=== PATIENT | male | born 1935 ===

== ENCOUNTER 2021-12-16 21:27 | Inpatient (IN) | payer MEDICARE, SELFPAY ==
[2021-12-16 22:06] VITALS: BP 122/59; PULSE 78; RESP 22; TEMP 36.6; O2SAT 92
[2021-12-16 23:23] VITALS: BMI 29.9
--- NOTE | 2021-12-16 23:47 | PC.ADMIT ---
Patient was admitted to [facility] at 9:45 PM escorted by emt's via stretcher from [facility] with dementia and increased aggressive behavior at home. Admitted here for psychiatric evaluation. Patient is oriented to name only and is very upset he is here and started to use foul language. Patient states I am not staying here I am going home to my and you can's fucking keep me here I'll fight . Attempts to orient patient to [facility] and that he will see a psychiatrist in the morning he could not understand. Patient wears bilateral hearing aides that work minimal as we still have to talk loud. Patient is weak on ambulation and requires a walker. Patient refused most of the assessment. Patient escorted to his room and assisted him to lay down and he did go to sleep. [facility] staff supervision with him at all times as he is a high fall risk.
[2021-12-17 06:00] VITALS: BP 98/60; PULSE 78; TEMP 36.7; O2SAT 97
[2021-12-17 08:28] LABS: Estimated Average Glucose 111 mg/dL; Hemoglobin A1C 106.1653 umol/L; Hemoglobin A1c % 5.5 %
[2021-12-17 08:33] LABS: Alanine Aminotransferase 11 U/L (0-40); Albumin Level 3.5 g/dL (3.5-5.0); Alkaline Phosphatase 52 U/L (39-117); Anion Gap 12 (12-20); Aspartate Amino Transferase 26 U/L (5-37); Blood Urea Nitrogen 30 mg/dL (9-16); Carbon Dioxide 27 mmol/L (22-29); Chloride 108 mmol/L (96-108); Cholesterol 110 mg/dL; Creatinine Clr Calc Pharmacy 37.7; Estimated Glomerular Filt Rate 38; Glucose Fasting 103 mg/dL (60-99); HDL Cholesterol 27 mg/dL; LDL Cholesterol Calculated 68 mg/dl; Magnesium 1.4 mg/dL (1.6-2.6); Potassium 4.7 mmol/L (3.3-5.1); Sodium 142 mmol/L (135-145); Total Protein 5.9 g/dL (6.5-8.0); Triglycerides 75 mg/dL
[2021-12-17 08:47] LABS: Free T4 (Free Thyroxine) 1.32 ng/dL (0.71-1.85); Thyroid Stimulating Hormone 1.02 uIU/mL (0.32-4.0)
[2021-12-17 09:01] LABS: Folate > 20.0 ng/mL (> or = 4.0); Vitamin B12 439 pg/mL (200-900)
[2021-12-17] MEDS: risperiDONE 0.5 MG TABLET PO ×2 (09:10→20:33)
[2021-12-17] MEDS: Clopidogrel Bisulfate 75 MG TABLET PO (09:10)
[2021-12-17] MEDS: Cyanocobalamin (Vitamin B-12) 500 MCG TABLET PO (09:10)
[2021-12-17] MEDS: Cholecalciferol (Vitamin D3) 10 MCG TABLET PO (09:10)
[2021-12-17] MEDS: Folic Acid 1 MG TABLET PO (09:10)
[2021-12-17] MEDS: atenoloL 25 MG TABLET PO (09:10)
[2021-12-17] MEDS: Multivitamin TABLET 1 TAB PO (09:10)
[2021-12-17] MEDS: Spironolactone 25 MG TABLET PO (09:11)
[2021-12-17] MEDS: allopurinoL 100 MG TABLET PO (09:11)
[2021-12-17] MEDS: lisinopriL 5 MG TABLET PO (09:11)
[2021-12-17] MEDS: Famotidine 20 MG TABLET PO (09:11)
[2021-12-17] MEDS: Escitalopram Oxalate 20 MG TABLET PO (09:11)
--- NOTE | 2021-12-17 11:56 | P.CNHOSGPS_ITS ---
History of Present Illness Data of Consult Service Date: 12/17/21 Requesting physician: Dustin Issa Primary Care Provider: Unknown Physician HPI Reason for consult: alizheimer dementia 86 y/o with alizherimer dementia ,gerd, dm2 , gout , possible ckd, possible HLP -admitted for behavioural issues . Patient is awake but have dementia unable to provide much history. Denies any new complaint of chest pain or shortness of breath or abdominal pain or fever or chills or nausea or vomiting Denies any cough Denies any weakness or numbness. patient is otherwise calm and sitting and his daughter and also [facility] -Dr Tomlinson for information : message left , psych provider aware to get information from [facility]. Review of Systems Review of Systems: as above. ENT: Reports Normal hearing present Neurologic: Reports Normal hearing present [facility] Medical History (Updated 12/17/21 @ 13:45 by Jennifer George MD) Diabetes GERD (gastroesophageal reflux disease) Pertinent family history: unable to obtain ( please see above ). Surgical History H/O coronary artery bypass surgery Social History Household Members: Spouse Housing: Assisted Living Facility Do you presently have visiting nurse or other home services: No Patient Tobacco Use Status: Former Tobacco user Tobacco use type: Cigarette Smoked in Last 30 Days: No e-Cigarette/Vaping Use: Never Used Patient Interested in Nicotine Replacement: No Patient Given Instructions on How to Stop Smoking: No (patient quit 10 years ago.) Second Hand Smoke Exposure: No Use of substances other than those prescribed or required for medical reasons: No Currently Displaying Signs/Symptoms of Drug Intoxication Withdrawal: No Any prior treatment program specific to substance use: No Have you been hit, kicked, punched, or otherwise hurt by someone within the past year? If so, by whom?: No Do you feel safe in your current relationship?: Yes Is there a partner from a previous relationship who is making you feel unsafe now?: No Are you made to feel afraid or neglected: No Spiritual Healthcare Practices: none Taoist Healthcare Practices: none Cultural Healthcare Practices: none Advance Directives: No Advance Directives Information Provided: No Do you have thoughts of harming others: None Do you have a plan to hurt others: No Plan Recently lost weight without trying: No Eating poorly because of decreased appetite: No Nutrition Risks: No Nutritional Risk Poor oral hygiene: Yes service: Yes ([employer]/ demilitarized zone) Sexual orientation: Straight/Heterosexual Meds Allergies Allergy/AdvReac Type Severity Reaction Status Date / Time aspirin Allergy Unknown Unknown Verified 12/16/21 23:03 egg Allergy Unknown Unknown Verified 12/16/21 22:59 gelatin Allergy Unknown Unknown Verified 12/16/21 22:59 latex Allergy Unknown Unknown Verified 12/16/21 22:59 neomycin Allergy Unknown Unknown Verified 12/16/21 22:59 Sulfa (Sulfonamide Allergy Unknown Unknown Verified 12/16/21 22:59 Antibiotics) sulfamethizole Allergy Unknown Unknown Verified 12/16/21 23:05 warfarin Allergy Unknown Unknown Verified 12/16/21 23:01 tramadol Allergy Unknown Verified 12/16/21 23:01 Active Medications: Current Medications Acetaminophen (Acetaminophen 325 Mg Tablet) 650 mg PO Q8H PRN PRN Reason: Pain, Mild (Pain Scale 1-3) Al Hydroxide/Mg Hydroxide (Magnesium Hydrox/Alum Hydrox 30 Ml Oral.Susp) 30 ml PO Q6H PRN PRN Reason: Heartburn/Nausea Allopurinol (Allopurinol 100 Mg Tablet) 100 mg PO DAILY [facility] Last Admin: 12/17/21 09:11 Dose: 100 mg Documented by: Atenolol (Atenolol 25 Mg Tablet) 25 mg PO DAILY [facility]; Protocol Last Admin: 12/17/21 09:10 Dose: 25 mg Documented by: Atorvastatin Calcium (Atorvastatin Calcium 20 Mg Tablet) 20 mg PO BEDTIME [facility] Clopidogrel Bisulfate (Clopidogrel Bisulfate 75 Mg Tablet) 75 mg PO DAILY [facility] Last Admin: 12/17/21 09:10 Dose: 75 mg Documented by: Cyanocobalamin (Cyanocobalamin (Vitamin B-12) 500 Mcg Tablet) 500 mcg PO DAILY [facility] Last Admin: 12/17/21 09:10 Dose: 500 mcg Documented by: Escitalopram Oxalate (Escitalopram Oxalate 20 Mg Tablet) 20 mg PO DAILY [facility] Last Admin: 12/17/21 09:11 Dose: 20 mg Documented by: Famotidine (Famotidine 20 Mg Tablet) 20 mg PO DAILY [facility] Last Admin: 12/17/21 09:11 Dose: 20 mg Documented by: Folic Acid (Folic Acid 1 Mg Tablet) 1 mg PO DAILY [facility] Last Admin: 12/17/21 09:10 Dose: 1 mg Documented by: Gabapentin (Gabapentin 100 Mg Capsule) 100 mg PO DAILY PRN PRN Reason: neuropathic pain Hydroxyzine HCl (Hydroxyzine Hcl 25 Mg Tablet) 25 mg PO BEDTIME PRN PRN Reason: Anxiety Lisinopril (Lisinopril 5 Mg Tablet) 5 mg PO DAILY [facility]; Protocol Last Admin: 12/17/21 09:11 Dose: 5 mg Documented by: Magnesium Hydroxide (Milk Of Magnesia 30 Ml Oral.Susp) 30 ml PO DAILY PRN PRN Reason: Constipation Multivitamins/Vitamin C (Multivitamin Tablet) 1 tab PO DAILY [facility] Last Admin: 12/17/21 09:10 Dose: 1 tab Documented by: Risperidone (Risperidone 0.5 Mg Tablet) 0.5 mg PO DAILY [facility] Last Admin: 12/17/21 09:10 Dose: 0.5 mg Documented by: Risperidone (Risperidone 0.5 Mg Tablet) 0.5 mg PO BEDTIME [facility] Spironolactone (Spironolactone 25 Mg Tablet) 25 mg PO DAILY [facility]; Protocol Last Admin: 12/17/21 09:11 Dose: 25 mg Documented by: Trazodone HCl (Trazodone Hcl 50 Mg Tablet) 50 mg PO BEDTIME PRN PRN Reason: Insomnia Vitamin D (Cholecalciferol (Vitamin D3) 10 Mcg Tablet) 10 mcg PO DAILY [facility] Last Admin: 12/17/21 09:10 Dose: 10 mcg Documented by: Home Medications Medication Instructions Recorded Confirmed Last Taken Type Cyanacobalamin 500 mcg PO DAILY 12/17/21 12/17/21 Unknown History Daily-Carey (with folic acid) 400 mcg PO DAILY 12/17/21 12/17/21 Unknown History allopurinol 100 mg PO DAILY 12/17/21 12/17/21 Unknown History atenolol 25 mg PO DAILY 12/17/21 12/17/21 Unknown History cholecalciferol (vitamin D3) 10 mcg PO DAILY 12/17/21 12/17/21 Unknown History citalopram 40 mg PO DAILY 12/17/21 12/17/21 Unknown History clopidogrel 75 mg PO DAILY 12/17/21 12/17/21 Unknown History folic acid 1 mg tablet 1 mg PO DAILY 12/17/21 12/17/21 Unknown History gabapentin 100 mg PO DAILY PRN 12/17/21 12/17/21 Unknown History lisinopril 5 mg PO DAILY 12/17/21 12/17/21 Unknown History takf5-[id number]-orn-fish oil-L.casei 1,200 mg PO DAILY 12/17/21 12/17/21 Unknown History pantoprazole 40 mg PO DAILY 12/17/21 12/17/21 Unknown History risperidone 0.5 mg PO DAILY 12/17/21 12/17/21 Unknown History simvastatin 40 mg PO DAILY 12/17/21 12/17/21 Unknown History spironolactone 25 mg PO DAILY 12/17/21 12/17/21 Unknown History Results Labs CBC and Chem 7: 12/17/21 07:49 Labs: Laboratory Results - last 24 hr 12/17/21 12/17/21 12/17/21 07:49 07:49 07:49 Anion Gap 12 Estim Creat Clear Calc 37.7 Estimated GFR 38 Fasting Glucose 103 H Estimat Average Glucose 111 Hemoglobin A1c % 5.5 Calcium 9.0 Magnesium 1.4 L* Total Bilirubin 1.0 AST 26 ALT 11 Alkaline Phosphatase 52 Total Protein 5.9 L Albumin 3.5 Triglycerides 75 Cholesterol 110 LDL Cholesterol, Calc 68 HDL Cholesterol 27 Vitamin B12 439 Folate > 20.0 TSH 1.02 Free T4 1.32 Assessment and Plan (1) Dementia: Status: Acute (2) Hypomagnesemia: Status: Acute (3) CKD (chronic kidney disease): Status: Acute Plan 86-year-old male with the multiple comorbidities as above: Admitted to the psych unit Alzheimer and behavior issues. 1. Alzheimer dementia with behavior changes Management as per psych. 2. Hypomagnesemia: Replacement added, monitor BMP and magnesium in 2 days. 3. Possible CKD :stage 3( unclear since information not available) his creatinine was 1.5 on 12/12/21( in [facility]). hold lisinopril and spironolactone for 2 days and check bmp encourage for hydration also consider nephro eval if still elevated creatinine 4. possible HLP: continue statin . check lipid panel 5. possible hx of cad( ? bypass): continue plavix . 6. Gerd: continue ppi. 7.Gout: continue allopurinol. 8. dm :hba1c 5.5 not on any dm meds moniter fs , diabetic diet In addition patient is also on B12, folate, atenolol-also on medication list sent from [facility] -psych is aware to get information, discussed with nursing staff miss Jefferson /Dr morton. Physical Exam Vital Signs: Last Vital Signs Temp 97.9 F 12/16/21 22:06 Pulse 78 12/16/21 22:06 Resp 22 H 12/16/21 22:06 BP 122/59 L 12/16/21 22:06 Pulse Ox 92 12/16/21 22:06 BMI result Body Mass Index 29.9 Appearance: Alert.? Oriented X3.? not in distress.? Eyes: Pupils equal, round and reactive to light.? Sclera nonicteric.? ENT: Pharynx normal.? Moist mucous membranes. cvs: rrr, [id number]. res: clear to auscultation ,no rhonchii or wheezing abd: no rebound or guarding ,nt, bs present. ext pulses present , no cyanosis . neuro: axo3 , nonfocal. Eyes Pupils: Equal, round and reactive pupils present Neuro Cranial nerves: Yes CN's II-XII intact bilaterally, Yes Facial sensation intact/muscles of mastication intact, Yes Intact sense of smell present, Yes Equal, round and reactive pupils present, Yes Normal accommodation reflex present, Yes Bilaterally intact EOM present, Yes Nystagmus not present, Yes Normal facial strength present, Yes Midline tongue present, Yes Normal gag reflex present, Yes Symmetric palate elevation present, Yes Normal hearing present, Yes Ability to bilaterally rotate head present and Yes Ability to bilaterally elevate shoulders present
--- NOTE | 2021-12-17 13:19 | P.HPPS_ITS ---
HPI Date of Service: 12/17/21 Chief Complaint: Unspecified dementia w/o behavioral disturbance Sources of Information: patient interviewed and chart reviewed HPI Subjective Notes: Section 12B Narrative: The patient is an 86-year-old male, , father of adult children, retired, resident of an assisted living facility, referred from the [facility] due to exacerbation of agitation and disorganized behavior. According to the chart, her daughter has reported that the patient was diagnosed with dementia and in the last 2 or 3 months his condition has worsened since he is hard of hearing and he cannot communicate very well. According to her daughter, also, the patient has poor short-term memory, inability to find words and increase confusion with agitation. The patient is a resident of an assisted living facility with his who also suffers from dementia for the last 10 years. Today in the morning, the patient was very angry and agitated is stating that he wanted to go back home. On interview, the patient was a very poor historian, he was unable to provide any information and he looked pleasantly confused. Unable to follow instructions due to his poor hearing. Past Psychiatric History: Known as per crisis report Medical Evaluation Reviewed: Hospitalist Suman Pending PENDING SALE TO [facility] Medical History (Updated 12/17/21 @ 13:45 by Jennifer George MD) Diabetes GERD (gastroesophageal reflux disease) Surgical History H/O coronary artery bypass surgery Family History: Denies Social History: Retired, resident of an assisted living facility with his who suffers from dementia. 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 Trauma History: Known Diagnostics Vital Signs (24Hr): Vital Signs - 24 hr 12/16/21 22:06 Temperature 97.9 F Pulse Rate 78 Respiratory Rate 22 H Blood Pressure 122/59 L Pulse Oximetry 92 BMI result Body Mass Index 29.9 Labs Results: 12/17/21 07:49 Labs: Laboratory Results - last 48 hr 12/17/21 12/17/21 12/17/21 07:49 07:49 07:49 Sodium 142 Potassium 4.7 Chloride 108 Carbon Dioxide 27 Anion Gap 12 BUN 30 H Creatinine 1.72 H Estim Creat Clear Calc 37.7 Estimated GFR 38 Fasting Glucose 103 H Estimat Average Glucose 111 Hemoglobin A1c % 5.5 Calcium 9.0 Magnesium 1.4 L* Total Bilirubin 1.0 AST 26 ALT 11 Alkaline Phosphatase 52 Total Protein 5.9 L Albumin 3.5 Triglycerides 75 Cholesterol 110 LDL Cholesterol, Calc 68 HDL Cholesterol 27 Vitamin B12 439 Folate > 20.0 TSH 1.02 Free T4 1.32 Meds/Allergies Meds Home Medications Acetaminophen (Acetaminophen 325 Mg Tablet) 650 mg PO Q8H PRN PRN Reason: Pain, Mild (Pain Scale 1-3) Al Hydroxide/Mg Hydroxide (Magnesium Hydrox/Alum Hydrox 30 Ml Oral.Susp) 30 ml PO Q6H PRN PRN Reason: Heartburn/Nausea Allopurinol (Allopurinol 100 Mg Tablet) 100 mg PO DAILY [facility] Last Admin: 12/17/21 09:11 Dose: 100 mg Documented by: Atenolol (Atenolol 25 Mg Tablet) 25 mg PO DAILY [facility]; Protocol Last Admin: 12/17/21 09:10 Dose: 25 mg Documented by: Atorvastatin Calcium (Atorvastatin Calcium 20 Mg Tablet) 20 mg PO BEDTIME [facility] Clopidogrel Bisulfate (Clopidogrel Bisulfate 75 Mg Tablet) 75 mg PO DAILY [facility] Last Admin: 12/17/21 09:10 Dose: 75 mg Documented by: Cyanocobalamin (Cyanocobalamin (Vitamin B-12) 500 Mcg Tablet) 500 mcg PO DAILY [facility] Last Admin: 12/17/21 09:10 Dose: 500 mcg Documented by: Escitalopram Oxalate (Escitalopram Oxalate 20 Mg Tablet) 20 mg PO DAILY [facility] Last Admin: 12/17/21 09:11 Dose: 20 mg Documented by: Famotidine (Famotidine 20 Mg Tablet) 20 mg PO DAILY [facility] Last Admin: 12/17/21 09:11 Dose: 20 mg Documented by: Folic Acid (Folic Acid 1 Mg Tablet) 1 mg PO DAILY [facility] Last Admin: 12/17/21 09:10 Dose: 1 mg Documented by: Gabapentin (Gabapentin 100 Mg Capsule) 100 mg PO DAILY PRN PRN Reason: neuropathic pain Hydroxyzine HCl (Hydroxyzine Hcl 25 Mg Tablet) 25 mg PO BEDTIME PRN PRN Reason: Anxiety Lisinopril (Lisinopril 5 Mg Tablet) 5 mg PO DAILY [facility]; Protocol Last Admin: 12/17/21 09:11 Dose: 5 mg Documented by: Magnesium Hydroxide (Milk Of Magnesia 30 Ml Oral.Susp) 30 ml PO DAILY PRN PRN Reason: Constipation Magnesium Oxide (Magnesium Oxide 400 Mg Tablet) [facility] Multivitamins/Vitamin C (Multivitamin Tablet) 1 tab PO DAILY [facility] Last Admin: 12/17/21 09:10 Dose: 1 tab Documented by: Risperidone (Risperidone 0.5 Mg Tablet) 0.5 mg PO TID [facility] Spironolactone (Spironolactone 25 Mg Tablet) 25 mg PO DAILY [facility]; Protocol Last Admin: 12/17/21 09:11 Dose: 25 mg Documented by: Trazodone HCl (Trazodone Hcl 50 Mg Tablet) 50 mg PO BEDTIME PRN PRN Reason: Insomnia Vitamin D (Cholecalciferol (Vitamin D3) 10 Mcg Tablet) 10 mcg PO DAILY [facility] Last Admin: 12/17/21 09:10 Dose: 10 mcg Documented by: Allergies Allergies Allergy/AdvReac Type Severity Reaction Status Date / Time aspirin Allergy Unknown Unknown Verified 12/16/21 23:03 egg Allergy Unknown Unknown Verified 12/16/21 22:59 gelatin Allergy Unknown Unknown Verified 12/16/21 22:59 latex Allergy Unknown Unknown Verified 12/16/21 22:59 neomycin Allergy Unknown Unknown Verified 12/16/21 22:59 Sulfa (Sulfonamide Allergy Unknown Unknown Verified 12/16/21 22:59 Antibiotics) sulfamethizole Allergy Unknown Unknown Verified 12/16/21 23:05 warfarin Allergy Unknown Unknown Verified 12/16/21 23:01 tramadol Allergy Unknown Verified 12/16/21 23:01 Mental Status Exam Mental Status Exam Patient Appearance: Fatigued and Unkempt Patient Orientation: Person Level of Consciousness: Awake Patient Behavior: Guarded and Suspicious Mood Description: Depressed Affect Description: Constricted Patient Cognition Impaired: Yes Ability to Follow Directions: Poor Speech Pattern: Impoverished and Difficulty Finding Words Hallucinations: None Delusions: Paranoid Ideation Thought Process: Illogical, Distracted and Evasive Thought Content: positive for Poverty of Content Judgement: Poor Assessment & Plan Assessment & Plan (1) 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 As per the report of her daughter, he responded fairly well to Risperdal in the past at a very low dose. Plan 1. Continue same medications as per med reconciliation form. 2. Gather collateral information. 3. Start Risperdal 0.5 mg p.o. t.i.d. to target psychosis. Patient educated on: medical condition Reason for continued inpatient stay Substantial Risk for: inability to function, rapid decompensation and med/psych decompensation
[2021-12-17] MEDS: Gabapentin 100 MG CAPSULE PO (15:03)
[2021-12-17] MEDS: Atorvastatin Calcium 20 MG TABLET PO (20:33)
[2021-12-17] MEDS: traZODone HCL 50 MG TABLET PO (20:33)
[2021-12-17] MEDS: hydrOXYzine HCL 25 MG TABLET PO (20:33)
[2021-12-17 21:46] VITALS: BP 145/70; PULSE 83; RESP 19; TEMP 37.2; O2SAT 99
[2021-12-17 21:58] LABS: Glucose, Whole Blood 109 mg/dL (60-115)
[2021-12-18 06:00] VITALS: BP 119/71; PULSE 73; TEMP 36.6; O2SAT 95
--- NOTE | 2021-12-18 08:00 | ECG_ITS ---
Test Reason : CHECK QTC Blood Pressure : / mmHG Vent. Rate : 065 BPM Atrial Rate : 065 BPM P-R Int : 212 ms QRS Dur : 146 ms QT Int : 416 ms P-R-T Axes : 087 020 -88 degrees QTc Int : 432 ms Sinus rhythm with 1st degree A-V block Non-specific intra-ventricular conduction block Lateral infarct , age undetermined Inferior infarct , age undetermined Abnormal ECG No previous ECGs available Referred By: Krzysztof Menjivar Electronically Signed By:Rito Zhu
[2021-12-18] MEDS: Clopidogrel Bisulfate 75 MG TABLET PO (08:33)
[2021-12-18] MEDS: Magnesium Oxide 400 MG TABLET PO (08:33)
[2021-12-18] MEDS: Famotidine 20 MG TABLET PO (08:33)
[2021-12-18] MEDS: Cyanocobalamin (Vitamin B-12) 500 MCG TABLET PO (08:33)
[2021-12-18] MEDS: Cholecalciferol (Vitamin D3) 10 MCG TABLET PO (08:33)
[2021-12-18] MEDS: risperiDONE 0.5 MG TABLET PO (08:34)
[2021-12-18] MEDS: Multivitamin TABLET 1 TAB PO (08:34)
[2021-12-18] MEDS: atenoloL 25 MG TABLET PO (08:34)
[2021-12-18] MEDS: Spironolactone 25 MG TABLET PO (08:34)
[2021-12-18] MEDS: allopurinoL 100 MG TABLET PO (08:34)
[2021-12-18] MEDS: Escitalopram Oxalate 20 MG TABLET PO (08:34)
[2021-12-18] MEDS: lisinopriL 5 MG TABLET PO (08:34)
[2021-12-18] MEDS: Folic Acid 1 MG TABLET PO (08:34)
--- NOTE | 2021-12-18 12:44 | HO.PSYCHPN ---
Subjective Subjective Date of Service: 12/18/21 Reason For Visit: Unspecified dementia w/o behavioral disturbance Interim History: The nursing staff reported the patient is on one-to-one for safety. The social sciences professor talked with the daughter and she provided a lot of information. The patient [facility] and apparently he has been deteriorating in the last months. there is a report that the patient could have Lewy Body dementia. At this moment, most likely the disposition will be to a care home facility. On interview, the patient denies new symptoms he was confused but not violent Mental Status Exam Mental Status Exam Patient Appearance: Well Grooomed Patient Orientation: Person Level of Consciousness: Awake Patient Behavior: Cooperative Mood Description: Constricted Affect Description: Constricted Patient Cognition Impaired: Yes Ability to Follow Directions: Good Speech Pattern: Appropriate Hallucinations: None Delusions: Paranoid Ideation Thought Process: Distracted and Confusion Thought Content: positive for Circumstantial and positive for Poverty of Content Judgement: Poor Diagnostics Vital Signs (24Hr): Vital Signs - 24 hr 12/17/21 21:46 Temperature 98.9 F Pulse Rate 83 Respiratory Rate 19 Blood Pressure 145/70 H Pulse Oximetry 99 BMI result Body Mass Index 29.9 Labs Results: 12/17/21 07:49 Labs: Laboratory Results - last 48 hr 12/17/21 12/17/21 12/17/21 07:49 07:49 07:49 Sodium 142 Potassium 4.7 Chloride 108 Carbon Dioxide 27 Anion Gap 12 BUN 30 H Creatinine 1.72 H Estim Creat Clear Calc 37.7 Estimated GFR 38 POC Glucose Fasting Glucose 103 H Estimat Average Glucose 111 Hemoglobin A1c % 5.5 Calcium 9.0 Magnesium 1.4 L* Total Bilirubin 1.0 AST 26 ALT 11 Alkaline Phosphatase 52 Total Protein 5.9 L Albumin 3.5 Triglycerides 75 Cholesterol 110 LDL Cholesterol, Calc 68 HDL Cholesterol 27 Vitamin B12 439 Folate > 20.0 TSH 1.02 Free T4 1.32 12/17/21 21:52 Sodium Potassium Chloride Carbon Dioxide Anion Gap BUN Creatinine Estim Creat Clear Calc Estimated GFR POC Glucose 109 Fasting Glucose Estimat Average Glucose Hemoglobin A1c % Calcium Magnesium Total Bilirubin AST ALT Alkaline Phosphatase Total Protein Albumin Triglycerides Cholesterol LDL Cholesterol, Calc HDL Cholesterol Vitamin B12 Folate TSH Free T4 Medications Medications Current Medications Acetaminophen (Acetaminophen 325 Mg Tablet) 650 mg PO Q8H PRN PRN Reason: Pain, Mild (Pain Scale 1-3) Al Hydroxide/Mg Hydroxide (Magnesium Hydrox/Alum Hydrox 30 Ml Oral.Susp) 30 ml PO Q6H PRN PRN Reason: Heartburn/Nausea Allopurinol (Allopurinol 100 Mg Tablet) 100 mg PO DAILY [facility] Last Admin: 12/18/21 08:34 Dose: 100 mg Documented by: Atenolol (Atenolol 25 Mg Tablet) 25 mg PO DAILY [facility]; Protocol Last Admin: 12/18/21 08:34 Dose: 25 mg Documented by: Atorvastatin Calcium (Atorvastatin Calcium 20 Mg Tablet) 20 mg PO BEDTIME [facility] Last Admin: 12/17/21 20:33 Dose: 20 mg Documented by: Clopidogrel Bisulfate (Clopidogrel Bisulfate 75 Mg Tablet) 75 mg PO DAILY [facility] Last Admin: 12/18/21 08:33 Dose: 75 mg Documented by: Cyanocobalamin (Cyanocobalamin (Vitamin B-12) 500 Mcg Tablet) 500 mcg PO DAILY [facility] Last Admin: 12/18/21 08:33 Dose: 500 mcg Documented by: Escitalopram Oxalate (Escitalopram Oxalate 20 Mg Tablet) 20 mg PO DAILY [facility] Last Admin: 12/18/21 08:34 Dose: 20 mg Documented by: Famotidine (Famotidine 20 Mg Tablet) 20 mg PO DAILY [facility] Last Admin: 12/18/21 08:33 Dose: 20 mg Documented by: Folic Acid (Folic Acid 1 Mg Tablet) 1 mg PO DAILY [facility] Last Admin: 12/18/21 08:34 Dose: 1 mg Documented by: Gabapentin (Gabapentin 100 Mg Capsule) 100 mg PO TID PRN PRN Reason: neuropathic pain Last Admin: 12/17/21 15:03 Dose: 100 mg Documented by: Hydroxyzine HCl (Hydroxyzine Hcl 25 Mg Tablet) 25 mg PO BEDTIME PRN PRN Reason: Anxiety Last Admin: 12/17/21 20:33 Dose: 25 mg Documented by: Lisinopril (Lisinopril 5 Mg Tablet) 5 mg PO DAILY [facility]; Protocol Last Admin: 12/18/21 08:34 Dose: 5 mg Documented by: Magnesium Hydroxide (Milk Of Magnesia 30 Ml Oral.Susp) 30 ml PO DAILY PRN PRN Reason: Constipation Magnesium Oxide (Magnesium Oxide 400 Mg Tablet) 400 mg PO BIDPC [facility] Last Admin: 12/18/21 08:33 Dose: 400 mg Documented by: Multivitamins/Vitamin C (Multivitamin Tablet) 1 tab PO DAILY [facility] Last Admin: 12/18/21 08:34 Dose: 1 tab Documented by: Risperidone (Risperidone 0.5 Mg Tablet) 0.5 mg PO TID [facility] Last Admin: 12/18/21 08:34 Dose: 0.5 mg Documented by: Spironolactone (Spironolactone 25 Mg Tablet) 25 mg PO DAILY [facility]; Protocol Last Admin: 12/18/21 08:34 Dose: 25 mg Documented by: Trazodone HCl (Trazodone Hcl 50 Mg Tablet) 50 mg PO BEDTIME PRN PRN Reason: Insomnia Last Admin: 12/17/21 20:33 Dose: 50 mg Documented by: Vitamin D (Cholecalciferol (Vitamin D3) 10 Mcg Tablet) 10 mcg PO DAILY [facility] Last Admin: 12/18/21 08:33 Dose: 10 mcg Documented by: Allergies Allergies Allergy/AdvReac Type Severity Reaction Status Date / Time aspirin Allergy Unknown Unknown Verified 12/16/21 23:03 egg Allergy Unknown Unknown Verified 12/16/21 22:59 gelatin Allergy Unknown Unknown Verified 12/16/21 22:59 latex Allergy Unknown Unknown Verified 12/16/21 22:59 neomycin Allergy Unknown Unknown Verified 12/16/21 22:59 Sulfa (Sulfonamide Allergy Unknown Unknown Verified 12/16/21 22:59 Antibiotics) sulfamethizole Allergy Unknown Unknown Verified 12/16/21 23:05 warfarin Allergy Unknown Unknown Verified 12/16/21 23:01 tramadol Allergy Unknown Verified 12/16/21 23:01 Assessment & Plan Assessment & Plan (1) 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 As per the report of her daughter, he responded fairly well to Risperdal in the past at a very low dose. Plan 1. Continue same medications as per med reconciliation form. 2. Gather collateral information. 3. increase Risperdal up to 1 mg p.o. b.i.d. I spent ___20___ minutes with the patient and/or on the patient floor today, greater than?50% of which was spent counseling/coordinating care. Patient educated on: therapeutic strategies Informed Consent: does not understand and further education needed Reason for contiued inpatient stay Substantial Risk for: inability to function, rapid decompensation and med/psych decompensation
[2021-12-18] MEDS: traZODone HCL 50 MG TABLET PO (20:46)
[2021-12-18] MEDS: risperiDONE 1 MG TABLET PO (20:46)
[2021-12-18] MEDS: hydrOXYzine HCL 25 MG TABLET PO (20:46)
[2021-12-18] MEDS: Atorvastatin Calcium 20 MG TABLET PO (20:47)
[2021-12-18 21:14] LABS: Glucose, Whole Blood 91 mg/dL (60-115)
[2021-12-18 21:56] VITALS: BP 125/65; PULSE 60; RESP 18; TEMP 37; O2SAT 93
[2021-12-19 08:00] VITALS: BP 116/83; PULSE 79; RESP 18; TEMP 36.3; O2SAT 94
[2021-12-19] MEDS: lisinopriL 5 MG TABLET PO (08:36)
[2021-12-19] MEDS: Magnesium Oxide 400 MG TABLET PO ×2 (08:36→16:53)
[2021-12-19] MEDS: Cyanocobalamin (Vitamin B-12) 500 MCG TABLET PO (08:36)
[2021-12-19] MEDS: Cholecalciferol (Vitamin D3) 10 MCG TABLET PO (08:36)
[2021-12-19] MEDS: risperiDONE 1 MG TABLET PO ×2 (08:36→20:23)
[2021-12-19] MEDS: allopurinoL 100 MG TABLET PO (08:37)
[2021-12-19] MEDS: atenoloL 25 MG TABLET PO (08:37)
[2021-12-19] MEDS: Escitalopram Oxalate 20 MG TABLET PO (08:37)
[2021-12-19] MEDS: Multivitamin TABLET 1 TAB PO (08:37)
[2021-12-19] MEDS: Folic Acid 1 MG TABLET PO (08:37)
[2021-12-19] MEDS: Famotidine 20 MG TABLET PO (08:37)
[2021-12-19] MEDS: Clopidogrel Bisulfate 75 MG TABLET PO (08:37)
[2021-12-19] MEDS: Spironolactone 25 MG TABLET PO (08:37)
--- NOTE | 2021-12-19 10:50 | P.PNPSI_ITS ---
Subjective Subjective Date of Service: 12/19/21 Reason For Visit: Unspecified dementia w/o behavioral disturbance Subjective Notes: Conditional Voluntary Interim History: Pt sitting in chair, language with noted aphasia and derailment. Pt reports he is 55, not 86. He also reports his is older. 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 He denies SI/HI. In morning pt put on 5 minutes checks, but he continued to present as impulsive, trying to ambulate on his own and move heavy objects without safety awareness, therefore was put back on 1:1 Medication Compliance: Yes Review of Systems Review of Systems as above. Yes Unobtainable due to mental status Reports Normal hearing present Reports Normal hearing present Mental Status Exam Mental Status Exam Patient Appearance: Well Grooomed Patient Orientation: Person Patient Behavior: Cooperative Mood Description: Constricted Affect Description: Constricted Patient Cognition Impaired: Yes Ability to Follow Directions: Good Speech Pattern: Appropriate Diagnostics Vital Signs (24Hr): Vital Signs - 24 hr 12/21/21 19:57 Temperature 97.8 F Pulse Rate 81 Respiratory Rate 18 Blood Pressure 108/59 L Pulse Oximetry 96 BMI result Body Mass Index 29.9 Labs Results: 12/21/21 08:14 12/21/21 08:14 Labs: Laboratory Results - last 48 hr 12/20/21 12/21/21 12/21/21 12:18 08:14 08:14 WBC 5.7 RBC 3.35 L Hgb 10.6 L Hct 32.2 L MCV 96.1 MCH 31.6 MCHC 32.9 RDW 12.5 Plt Count 136 L MPV 9.8 Immature Gran % (Auto) 0.5 H Neut % (Auto) 68.2 Lymph % (Auto) 15.8 L Hand % (Auto) 12.8 H Eos % (Auto) 2.3 Baso % (Auto) 0.4 Lymph # (Auto) 0.9 L Hand # (Auto) 0.7 Eos # (Auto) 0.1 Baso # (Auto) 0.0 Abs Immat Gran (auto) 0.03 Absolute Neuts (auto) 3.9 Absolute Nucleated RBC 0.000 Nucleated RBC % (auto) 0.0 Sodium 139 137 Potassium 5.3 H 4.8 Chloride 107 106 Carbon Dioxide 20 L 26 Anion Gap 17 10 L BUN 41 H 37 H Creatinine 2.06 H 1.61 H Estim Creat Clear Calc 31.5 40.3 Estimated GFR 31 41 Random Glucose 91 102 Calcium 9.3 9.0 Total Bilirubin 1.2 H 1.0 AST 34 29 ALT 16 16 Alkaline Phosphatase 59 55 Total Protein 6.5 5.7 L Albumin 3.6 3.3 L Medications Medications Current Medications Acetaminophen (Acetaminophen 325 Mg Tablet) 650 mg PO Q8H PRN PRN Reason: Pain, Mild (Pain Scale 1-3) Al Hydroxide/Mg Hydroxide (Magnesium Hydrox/Alum Hydrox 30 Ml Oral.Susp) 30 ml PO Q6H PRN PRN Reason: Heartburn/Nausea Allopurinol (Allopurinol 100 Mg Tablet) 100 mg PO DAILY [facility] Last Admin: 12/21/21 09:33 Dose: 100 mg Documented by: Atenolol (Atenolol 25 Mg Tablet) 25 mg PO DAILY [facility]; Protocol Last Admin: 12/21/21 10:16 Dose: Not Given Documented by: Atorvastatin Calcium (Atorvastatin Calcium 20 Mg Tablet) 20 mg PO BEDTIME [facility] Last Admin: 12/21/21 20:16 Dose: 20 mg Documented by: Clopidogrel Bisulfate (Clopidogrel Bisulfate 75 Mg Tablet) 75 mg PO DAILY [facility] Last Admin: 12/21/21 09:32 Dose: 75 mg Documented by: Cyanocobalamin (Cyanocobalamin (Vitamin B-12) 500 Mcg Tablet) 500 mcg PO DAILY [facility] Last Admin: 12/21/21 09:33 Dose: 500 mcg Documented by: Divalproex Sodium (Divalproex Sodium Sprinkles 125 Mg ) 125 mg PO TID [facility] Last Admin: 12/21/21 20:16 Dose: 125 mg Documented by: Escitalopram Oxalate (Escitalopram Oxalate 20 Mg Tablet) 20 mg PO DAILY [facility] Last Admin: 12/21/21 09:33 Dose: 20 mg Documented by: Famotidine (Famotidine 20 Mg Tablet) 20 mg PO DAILY [facility] Last Admin: 12/21/21 09:32 Dose: 20 mg Documented by: Folic Acid (Folic Acid 1 Mg Tablet) 1 mg PO DAILY [facility] Last Admin: 12/21/21 09:32 Dose: 1 mg Documented by: Hydroxyzine HCl (Hydroxyzine Hcl 25 Mg Tablet) 25 mg PO BEDTIME PRN PRN Reason: Anxiety Last Admin: 12/19/21 23:02 Dose: 25 mg Documented by: Magnesium Hydroxide (Milk Of Magnesia 30 Ml Oral.Susp) 30 ml PO DAILY PRN PRN Reason: Constipation Magnesium Oxide (Magnesium Oxide 400 Mg Tablet) 400 mg PO BIDPC [facility] Last Admin: 12/21/21 23:17 Dose: Not Given Documented by: Multivitamins/Vitamin C (Multivitamin Tablet) 1 tab PO DAILY [facility] Last Admin: 12/21/21 09:32 Dose: 1 tab Documented by: Nystatin (Nystatin Ointment 15 Gm Tube) 1 appl TOPICAL BID [facility]; Protocol Last Admin: 12/21/21 20:23 Dose: Not Given Documented by: Olanzapine (Olanzapine 5 Mg Tablet) 5 mg PO Q4H PRN PRN Reason: agitation Last Admin: 12/21/21 13:01 Dose: 5 mg Documented by: Risperidone (Risperidone 1 Mg Tablet) 1 mg PO BID [facility] Last Admin: 12/21/21 20:16 Dose: 1 mg Documented by: Spironolactone (Spironolactone 25 Mg Tablet) 25 mg PO DAILY [facility]; Protocol Last Admin: 12/21/21 10:16 Dose: Not Given Documented by: Trazodone HCl (Trazodone Hcl 50 Mg Tablet) 50 mg PO BEDTIME PRN PRN Reason: Insomnia Last Admin: 12/19/21 20:23 Dose: 50 mg Documented by: Vitamin D (Cholecalciferol (Vitamin D3) 10 Mcg Tablet) 10 mcg PO DAILY [facility] Last Admin: 12/21/21 09:32 Dose: 10 mcg Documented by: Allergies Allergies Allergy/AdvReac Type Severity Reaction Status Date / Time aspirin Allergy Unknown Unknown Verified 12/16/21 23:03 egg Allergy Unknown Unknown Verified 12/16/21 22:59 gelatin Allergy Unknown Unknown Verified 12/16/21 22:59 latex Allergy Unknown Unknown Verified 12/16/21 22:59 neomycin Allergy Unknown Unknown Verified 12/16/21 22:59 Sulfa (Sulfonamide Allergy Unknown Unknown Verified 12/16/21 22:59 Antibiotics) sulfamethizole Allergy Unknown Unknown Verified 12/16/21 23:05 warfarin Allergy Unknown Unknown Verified 12/16/21 23:01 tramadol Allergy Unknown Verified 12/16/21 23:01 Assessment & Plan Assessment & Plan (1) 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 As per the report of her daughter, he responded fairly well to Risperdal in the past at a very low dose. Plan 1. Continue same medications as per med reconciliation form. 2. Gather collateral information. 3. continue Risperdal up to 1 mg p.o. b.i.d. May consider mood stabilizer for impulsive behaviors. I spent minutes with the patient and/or on the patient floor today, greater than?50% of which was spent counseling/coordinating care. Reason for contiued inpatient stay Substantial Risk for: inability to function
[2021-12-19] MEDS: OLANZapine 5 MG TABLET PO ×3 (12:34→23:02)
[2021-12-19 18:00] VITALS: BP 96/56; PULSE 64; RESP 16; TEMP 36.7; O2SAT 93
[2021-12-19] MEDS: traZODone HCL 50 MG TABLET PO (20:23)
[2021-12-19] MEDS: Atorvastatin Calcium 20 MG TABLET PO (20:23)
[2021-12-19] MEDS: Gabapentin 100 MG CAPSULE PO (21:02)
[2021-12-19] MEDS: OLANZapine 10 MG VIAL 5 MG IM (22:32)
[2021-12-19] MEDS: LORazepam 2 MG/ML VIAL 1 MG IM (22:34)
--- NOTE | 2021-12-19 22:37 | PC.NURSE ---
Addendum entered by Deandre Mitchell RN 12/19/21 23:57: pt assisted to bed. currently he is laying in bed and muttering. he has been calm and cooperative. 1 to 1 sitter associate software engineer at bedside. Original Note: pt has increasing agitation and belligerent behavior. he is in the common area moving chairs and slamming his hands onto table. he focuses on clutching female staff who remain out of his reach. he did readily take his scheduled po medications. contacted Kaitlynn Guerra in regard to increasing agitation and belligerent behavior.orders received for zyprexa and ativan im stat. pt ambulated to his room where he used the bathroom. after explanation of the administration of IM Zyprexa and Ativan, pt is receptive to injection. pt is cooperative and actually removes his sweat shirt voluntarily for injection to right deltoid.
[2021-12-19] MEDS: hydrOXYzine HCL 25 MG TABLET PO (23:02)
--- NOTE | 2021-12-20 09:54 | HO.PSYCHPN ---
Subjective Subjective Date of Service: 12/20/21 Reason For Visit: Unspecified dementia w/o behavioral disturbance Subjective Notes: Conditional Voluntary Interim History: Pt had episode of agitation, trying to hit staff, ambulate without assistance. He received olanzapine 5mg Im and ativan 1mg IM with good effect. This morning pt in bed, briefly opens eyes reports doing well and then goes back to sleep stating he is tired. He continues on 1:1 for safety. Medication Compliance: Yes Side effects from medications: No Review of Systems Review of Systems as above. Yes Unobtainable due to mental status Reports Normal hearing present Reports Normal hearing present Mental Status Exam Mental Status Exam Patient Appearance: Well Grooomed Patient Orientation: Person Level of Consciousness: Awake Patient Behavior: Cooperative Mood Description: Constricted Affect Description: Constricted Patient Cognition Impaired: Yes Ability to Follow Directions: Good Speech Pattern: Appropriate Diagnostics Vital Signs (24Hr): Vital Signs - 24 hr 12/21/21 19:57 Temperature 97.8 F Pulse Rate 81 Respiratory Rate 18 Blood Pressure 108/59 L Pulse Oximetry 96 BMI result Body Mass Index 29.9 Labs Results: 12/21/21 08:14 12/21/21 08:14 Labs: Laboratory Results - last 48 hr 12/20/21 12/21/21 12/21/21 12:18 08:14 08:14 WBC 5.7 RBC 3.35 L Hgb 10.6 L Hct 32.2 L MCV 96.1 MCH 31.6 MCHC 32.9 RDW 12.5 Plt Count 136 L MPV 9.8 Immature Gran % (Auto) 0.5 H Neut % (Auto) 68.2 Lymph % (Auto) 15.8 L [place] % (Auto) 12.8 H Eos % (Auto) 2.3 Baso % (Auto) 0.4 Lymph # (Auto) 0.9 L [place] # (Auto) 0.7 Eos # (Auto) 0.1 Baso # (Auto) 0.0 Abs Immat Gran (auto) 0.03 Absolute Neuts (auto) 3.9 Absolute Nucleated RBC 0.000 Nucleated RBC % (auto) 0.0 Sodium 139 137 Potassium 5.3 H 4.8 Chloride 107 106 Carbon Dioxide 20 L 26 Anion Gap 17 10 L BUN 41 H 37 H Creatinine 2.06 H 1.61 H Estim Creat Clear Calc 31.5 40.3 Estimated GFR 31 41 Random Glucose 91 102 Calcium 9.3 9.0 Total Bilirubin 1.2 H 1.0 AST 34 29 ALT 16 16 Alkaline Phosphatase 59 55 Total Protein 6.5 5.7 L Albumin 3.6 3.3 L Medications Medications Current Medications Acetaminophen (Acetaminophen 325 Mg Tablet) 650 mg PO Q8H PRN PRN Reason: Pain, Mild (Pain Scale 1-3) Al Hydroxide/Mg Hydroxide (Magnesium Hydrox/Alum Hydrox 30 Ml Oral.Susp) 30 ml PO Q6H PRN PRN Reason: Heartburn/Nausea Allopurinol (Allopurinol 100 Mg Tablet) 100 mg PO DAILY [facility] Last Admin: 12/21/21 09:33 Dose: 100 mg Documented by: Atenolol (Atenolol 25 Mg Tablet) 25 mg PO DAILY [facility] [place]; Protocol Last Admin: 12/21/21 10:16 Dose: Not Given Documented by: Atorvastatin Calcium (Atorvastatin Calcium 20 Mg Tablet) 20 mg PO BEDTIME [facility] [place] Last Admin: 12/21/21 20:16 Dose: 20 mg Documented by: Clopidogrel Bisulfate (Clopidogrel Bisulfate 75 Mg Tablet) 75 mg PO DAILY [facility] [place] Last Admin: 12/21/21 09:32 Dose: 75 mg Documented by: Cyanocobalamin (Cyanocobalamin (Vitamin B-12) 500 Mcg Tablet) 500 mcg PO DAILY [facility] [place] Last Admin: 12/21/21 09:33 Dose: 500 mcg Documented by: Divalproex Sodium (Divalproex Sodium Sprinkles 125 Mg ) 125 mg PO TID [facility] [place] Last Admin: 12/21/21 20:16 Dose: 125 mg Documented by: Escitalopram Oxalate (Escitalopram Oxalate 20 Mg Tablet) 20 mg PO DAILY [facility] [place] Last Admin: 12/21/21 09:33 Dose: 20 mg Documented by: Famotidine (Famotidine 20 Mg Tablet) 20 mg PO DAILY [facility] [place] Last Admin: 12/21/21 09:32 Dose: 20 mg Documented by: Folic Acid (Folic Acid 1 Mg Tablet) 1 mg PO DAILY [facility] [place] Last Admin: 12/21/21 09:32 Dose: 1 mg Documented by: Hydroxyzine HCl (Hydroxyzine Hcl 25 Mg Tablet) 25 mg PO BEDTIME PRN PRN Reason: Anxiety Last Admin: 12/19/21 23:02 Dose: 25 mg Documented by: Magnesium Hydroxide (Milk Of Magnesia 30 Ml Oral.Susp) 30 ml PO DAILY PRN PRN Reason: Constipation Magnesium Oxide (Magnesium Oxide 400 Mg Tablet) 400 mg PO BIDPC [facility] [place] Last Admin: 12/21/21 23:17 Dose: Not Given Documented by: Multivitamins/Vitamin C (Multivitamin Tablet) 1 tab PO DAILY [facility] [place] Last Admin: 12/21/21 09:32 Dose: 1 tab Documented by: Nystatin (Nystatin Ointment 15 Gm Tube) 1 appl TOPICAL BID [facility] [place]; Protocol Last Admin: 12/21/21 20:23 Dose: Not Given Documented by: Olanzapine (Olanzapine 5 Mg Tablet) 5 mg PO Q4H PRN PRN Reason: agitation Last Admin: 12/21/21 13:01 Dose: 5 mg Documented by: Risperidone (Risperidone 1 Mg Tablet) 1 mg PO BID [facility] [place] Last Admin: 12/21/21 20:16 Dose: 1 mg Documented by: Spironolactone (Spironolactone 25 Mg Tablet) 25 mg PO DAILY [facility] [place]; Protocol Last Admin: 12/21/21 10:16 Dose: Not Given Documented by: Trazodone HCl (Trazodone Hcl 50 Mg Tablet) 50 mg PO BEDTIME PRN PRN Reason: Insomnia Last Admin: 12/19/21 20:23 Dose: 50 mg Documented by: Vitamin D (Cholecalciferol (Vitamin D3) 10 Mcg Tablet) 10 mcg PO DAILY [facility] [place] Last Admin: 12/21/21 09:32 Dose: 10 mcg Documented by: Allergies Allergies Allergy/AdvReac Type Severity Reaction Status Date / Time aspirin Allergy Unknown Unknown Verified 12/16/21 23:03 egg Allergy Unknown Unknown Verified 12/16/21 22:59 gelatin Allergy Unknown Unknown Verified 12/16/21 22:59 latex Allergy Unknown Unknown Verified 12/16/21 22:59 neomycin Allergy Unknown Unknown Verified 12/16/21 22:59 Sulfa (Sulfonamide Allergy Unknown Unknown Verified 12/16/21 22:59 Antibiotics) sulfamethizole Allergy Unknown Unknown Verified 12/16/21 23:05 warfarin Allergy Unknown Unknown Verified 12/16/21 23:01 tramadol Allergy Unknown Verified 12/16/21 23:01 Assessment & Plan Assessment & Plan (1) 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 As per the report of her daughter, he responded fairly well to Risperdal in the past at a very low dose. Plan 1. Continue same medications as per med reconciliation form. 2. Gather collateral information. 3. continue Risperdal up to 1 mg p.o. b.i.d. May consider mood stabilizer for impulsive behaviors. 3/5- added depakote 125mg po TID for impulsive behaviors, repeat CMP- increase Cr from previous days, mild hyperkalemia. consult with who advised to stop lisinopril, no need for fluids at this time. I spent minutes with the patient and/or on the patient floor today, greater than?50% of which was spent counseling/coordinating care. Reason for contiued inpatient stay Substantial Risk for: inability to function
[2021-12-20 12:53] LABS: Alanine Aminotransferase 16 U/L (0-40); Albumin Level 3.6 g/dL (3.5-5.0); Alkaline Phosphatase 59 U/L (39-117); Anion Gap 17 (12-20); Aspartate Amino Transferase 34 U/L (5-37); Bilirubin Total 1.2 mg/dL (0.0-1.0); Blood Urea Nitrogen 41 mg/dL (9-16); Calcium 9.3 mg/dL (8.4-10.2); Carbon Dioxide 20 mmol/L (22-29); Chloride 107 mmol/L (96-108); Creatinine Clr Calc Pharmacy 31.5; Estimated Glomerular Filt Rate 31; Glucose Random 91 mg/dL (60-115); Potassium 5.3 mmol/L (3.3-5.1); Sodium 139 mmol/L (135-145); Total Protein 6.5 g/dL (6.5-8.0)
[2021-12-20 18:00] VITALS: BP 150/70; PULSE 63; RESP 16; TEMP 36.6; O2SAT 94
[2021-12-20] MEDS: Atorvastatin Calcium 20 MG TABLET PO (21:06)
[2021-12-20] MEDS: risperiDONE 1 MG TABLET PO (21:06)
[2021-12-20] MEDS: Nystatin Ointment 15 GM TUBE 1 APPL TOPICAL (21:07)
[2021-12-20] MEDS: Divalproex Sodium Sprinkles 125 MG CAP.DR.SPR PO (21:07)
--- NOTE | 2021-12-21 06:57 | P.PNPSI_ITS ---
Subjective Subjective Date of Service: 12/21/21 Reason For Visit: Unspecified dementia w/o behavioral disturbance Subjective Notes: Conditional Voluntary Interim History: No behavioral agitation in last 24 hrs. Pt slept most of morning and visible in the afternoon for meals. He initially declined some of his medications but later took them without any problems. He denies SI/HI. He reports feeling tired. He continues on 1:1 for safety. Medication Compliance: Yes Review of Systems Review of Systems as above. Yes Unobtainable due to mental status Reports Normal hearing present Reports Normal hearing present Mental Status Exam Mental Status Exam Patient Appearance: Well Grooomed Patient Orientation: Person Level of Consciousness: Awake Patient Behavior: Cooperative Mood Description: Constricted Affect Description: Constricted Patient Cognition Impaired: Yes Ability to Follow Directions: Good Speech Pattern: Appropriate Diagnostics Vital Signs (24Hr): Vital Signs - 24 hr 12/21/21 19:57 Temperature 97.8 F Pulse Rate 81 Respiratory Rate 18 Blood Pressure 108/59 L Pulse Oximetry 96 BMI result Body Mass Index 29.9 Labs Results: 12/21/21 08:14 12/21/21 08:14 Labs: Laboratory Results - last 48 hr 12/20/21 12/21/21 12/21/21 12:18 08:14 08:14 WBC 5.7 RBC 3.35 L Hgb 10.6 L Hct 32.2 L MCV 96.1 MCH 31.6 MCHC 32.9 RDW 12.5 Plt Count 136 L MPV 9.8 Immature Gran % (Auto) 0.5 H Neut % (Auto) 68.2 Lymph % (Auto) 15.8 L [place] % (Auto) 12.8 H Eos % (Auto) 2.3 Baso % (Auto) 0.4 Lymph # (Auto) 0.9 L [place] # (Auto) 0.7 Eos # (Auto) 0.1 Baso # (Auto) 0.0 Abs Immat Gran (auto) 0.03 Absolute Neuts (auto) 3.9 Absolute Nucleated RBC 0.000 Nucleated RBC % (auto) 0.0 Sodium 139 137 Potassium 5.3 H 4.8 Chloride 107 106 Carbon Dioxide 20 L 26 Anion Gap 17 10 L BUN 41 H 37 H Creatinine 2.06 H 1.61 H Estim Creat Clear Calc 31.5 40.3 Estimated GFR 31 41 Random Glucose 91 102 Calcium 9.3 9.0 Total Bilirubin 1.2 H 1.0 AST 34 29 ALT 16 16 Alkaline Phosphatase 59 55 Total Protein 6.5 5.7 L Albumin 3.6 3.3 L Medications Medications Current Medications Acetaminophen (Acetaminophen 325 Mg Tablet) 650 mg PO Q8H PRN PRN Reason: Pain, Mild (Pain Scale 1-3) Al Hydroxide/Mg Hydroxide (Magnesium Hydrox/Alum Hydrox 30 Ml Oral.Susp) 30 ml PO Q6H PRN PRN Reason: Heartburn/Nausea Allopurinol (Allopurinol 100 Mg Tablet) 100 mg PO DAILY [facility] Last Admin: 12/21/21 09:33 Dose: 100 mg Documented by: Atenolol (Atenolol 25 Mg Tablet) 25 mg PO DAILY [facility]; Protocol Last Admin: 12/21/21 10:16 Dose: Not Given Documented by: Atorvastatin Calcium (Atorvastatin Calcium 20 Mg Tablet) 20 mg PO BEDTIME [facility] Last Admin: 12/21/21 20:16 Dose: 20 mg Documented by: Clopidogrel Bisulfate (Clopidogrel Bisulfate 75 Mg Tablet) 75 mg PO DAILY [facility] Last Admin: 12/21/21 09:32 Dose: 75 mg Documented by: Cyanocobalamin (Cyanocobalamin (Vitamin B-12) 500 Mcg Tablet) 500 mcg PO DAILY [facility] Last Admin: 12/21/21 09:33 Dose: 500 mcg Documented by: Divalproex Sodium (Divalproex Sodium Sprinkles 125 Mg ) 125 mg PO TID [facility] Last Admin: 12/21/21 20:16 Dose: 125 mg Documented by: Escitalopram Oxalate (Escitalopram Oxalate 20 Mg Tablet) 20 mg PO DAILY [facility] Last Admin: 12/21/21 09:33 Dose: 20 mg Documented by: Famotidine (Famotidine 20 Mg Tablet) 20 mg PO DAILY [facility] Last Admin: 12/21/21 09:32 Dose: 20 mg Documented by: Folic Acid (Folic Acid 1 Mg Tablet) 1 mg PO DAILY [facility] Last Admin: 12/21/21 09:32 Dose: 1 mg Documented by: Hydroxyzine HCl (Hydroxyzine Hcl 25 Mg Tablet) 25 mg PO BEDTIME PRN PRN Reason: Anxiety Last Admin: 12/19/21 23:02 Dose: 25 mg Documented by: Magnesium Hydroxide (Milk Of Magnesia 30 Ml Oral.Susp) 30 ml PO DAILY PRN PRN Reason: Constipation [facility] ([facility] 400 [facility] Admin: 12/21/21 23:17 Dose: Not Given Documented by: Multivitamins/Vitamin C (Multivitamin Tablet) 1 tab PO DAILY [facility] Last Admin: 12/21/21 09:32 Dose: 1 tab Documented by: Nystatin (Nystatin Ointment 15 Gm Tube) 1 appl TOPICAL BID [facility]; Protocol Last Admin: 12/21/21 20:23 Dose: Not Given Documented by: Olanzapine (Olanzapine 5 Mg Tablet) 5 mg PO Q4H PRN PRN Reason: agitation Last Admin: 12/21/21 13:01 Dose: 5 mg Documented by: Risperidone (Risperidone 1 Mg Tablet) 1 mg PO BID [facility] Last Admin: 12/21/21 20:16 Dose: 1 mg Documented by: Spironolactone (Spironolactone 25 Mg Tablet) 25 mg PO DAILY [facility]; Protocol Last Admin: 12/21/21 10:16 Dose: Not Given Documented by: Trazodone HCl (Trazodone Hcl 50 Mg Tablet) 50 mg PO BEDTIME PRN PRN Reason: Insomnia Last Admin: 12/19/21 20:23 Dose: 50 mg Documented by: Vitamin D (Cholecalciferol (Vitamin D3) 10 Mcg Tablet) 10 mcg PO DAILY [facility] Last Admin: 12/21/21 09:32 Dose: 10 mcg Documented by: Allergies Allergies Allergy/AdvReac Type Severity Reaction Status Date / Time aspirin Allergy Unknown Unknown Verified 12/16/21 23:03 egg Allergy Unknown Unknown Verified 12/16/21 22:59 gelatin Allergy Unknown Unknown Verified 12/16/21 22:59 latex Allergy Unknown Unknown Verified 12/16/21 22:59 neomycin Allergy Unknown Unknown Verified 12/16/21 22:59 Sulfa (Sulfonamide Allergy Unknown Unknown Verified 12/16/21 22:59 Antibiotics) sulfamethizole Allergy Unknown Unknown Verified 12/16/21 23:05 warfarin Allergy Unknown Unknown Verified 12/16/21 23:01 tramadol Allergy Unknown Verified 12/16/21 23:01 Assessment & Plan Assessment & Plan (1) 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 As per the report of her daughter, he responded fairly well to Risperdal in the past at a very low dose. Plan 1. Continue same medications as per med reconciliation form. 2. Gather collateral information. 3. continue Risperdal up to 1 mg p.o. b.i.d. May consider mood stabilizer for impulsive behaviors. 3/5- added depakote 125mg po TID for impulsive behaviors, repeat CMP- increase Cr from previous days, mild hyperkalemia. consult with who advised to stop lisinopril, no need for fluids at this time. 3/6 continue current medications. I spent minutes with the patient and/or on the patient floor today, greater than?50% of which was spent counseling/coordinating care. Reason for contiued inpatient stay Substantial Risk for: inability to function
[2021-12-21 08:18] LABS: MANUAL DIFF FLAG NO
[2021-12-21 08:19] LABS: Basophils Percent Auto 0.4 % (0-2); Eosinophils Absolute Auto 0.1 X10*3/uL (0.0-0.4); Eosinophils Percent Auto 2.3 % (0-4); Hematocrit 32.2 % (42.0-52.0); Hemoglobin 10.6 g/dl (14.0-18.0); Imm Gran Abs Auto 0.03 X10*3/uL (0.00-0.03); Imm Gran Pct Auto 0.5 % (0.0-0.4); Lymphocytes Absolute Auto 0.9 X10*3/uL (1.2-4.9); Lymphocytes Percent Auto 15.8 % (20-40); Mean Corpuscular HGB Conc 32.9 g/dl (31.0-36.0); Mean Corpuscular Hemoglobin 31.6 pg (27.0-33.0); Mean Corpuscular Volume 96.1 fL (80.0-98.0); Mean Platelet Volume 9.8 fL (9.4-12.4); Monocytes Absolute Auto 0.7 X10*3/uL (0.1-1.2); Monocytes Percent Auto 12.8 % (2-11); Neutrophils Absolute Auto 3.9 x10*3/uL (2.0-8.3); Neutrophils Percent Auto 68.2 % (45-73); Platelet Count 136 X10*3/uL (160-400); Red Blood Count 3.35 X10*6/uL (4.60-5.80); Red Cell Distribution Width 12.5 % (11.0-16.0); White Blood Count 5.7 X10*3/uL (4.8-10.8)
[2021-12-21 08:38] LABS: Alanine Aminotransferase 16 U/L (0-40); Albumin Level 3.3 g/dL (3.5-5.0); Alkaline Phosphatase 55 U/L (39-117); Anion Gap 10 (12-20); Aspartate Amino Transferase 29 U/L (5-37); Blood Urea Nitrogen 37 mg/dL (9-16); Carbon Dioxide 26 mmol/L (22-29); Chloride 106 mmol/L (96-108); Creatinine Clr Calc Pharmacy 40.3; Estimated Glomerular Filt Rate 41; Glucose Random 102 mg/dL (60-115); Potassium 4.8 mmol/L (3.3-5.1); Sodium 137 mmol/L (135-145); Total Protein 5.7 g/dL (6.5-8.0)
[2021-12-21] MEDS: Multivitamin TABLET 1 TAB PO (09:32)
[2021-12-21] MEDS: Folic Acid 1 MG TABLET PO (09:32)
[2021-12-21] MEDS: risperiDONE 1 MG TABLET PO ×2 (09:32→20:16)
[2021-12-21] MEDS: Cholecalciferol (Vitamin D3) 10 MCG TABLET PO (09:32)
[2021-12-21] MEDS: Famotidine 20 MG TABLET PO (09:32)
[2021-12-21] MEDS: Clopidogrel Bisulfate 75 MG TABLET PO (09:32)
[2021-12-21] MEDS: Divalproex Sodium Sprinkles 125 MG CAP.DR.SPR PO ×3 (09:32→20:16)
[2021-12-21] MEDS: Magnesium Oxide 400 MG TABLET PO (09:32)
[2021-12-21] MEDS: Escitalopram Oxalate 20 MG TABLET PO (09:33)
[2021-12-21] MEDS: allopurinoL 100 MG TABLET PO (09:33)
[2021-12-21] MEDS: Cyanocobalamin (Vitamin B-12) 500 MCG TABLET PO (09:33)
[2021-12-21] MEDS: OLANZapine 5 MG TABLET PO (13:01)
[2021-12-21 19:57] VITALS: BP 108/59; PULSE 81; RESP 18; TEMP 36.6; O2SAT 96
[2021-12-21] MEDS: Atorvastatin Calcium 20 MG TABLET PO (20:16)
[2021-12-22 08:00] VITALS: BP 114/62; PULSE 69; TEMP 36.2; O2SAT 94
[2021-12-22] MEDS: Multivitamin TABLET 1 TAB PO (09:14)
[2021-12-22] MEDS: Divalproex Sodium Sprinkles 125 MG CAP.DR.SPR PO ×3 (09:14→20:56)
[2021-12-22] MEDS: Clopidogrel Bisulfate 75 MG TABLET PO (09:14)
[2021-12-22] MEDS: Folic Acid 1 MG TABLET PO (09:14)
[2021-12-22] MEDS: atenoloL 25 MG TABLET PO (09:14)
[2021-12-22] MEDS: Cyanocobalamin (Vitamin B-12) 500 MCG TABLET PO (09:14)
[2021-12-22] MEDS: Famotidine 20 MG TABLET PO (09:14)
[2021-12-22] MEDS: Spironolactone 25 MG TABLET PO (09:14)
[2021-12-22] MEDS: allopurinoL 100 MG TABLET PO (09:14)
[2021-12-22] MEDS: Magnesium Oxide 400 MG TABLET PO ×2 (09:14→18:33)
[2021-12-22] MEDS: risperiDONE 1 MG TABLET PO ×2 (09:14→20:56)
[2021-12-22] MEDS: Cholecalciferol (Vitamin D3) 10 MCG TABLET PO (09:14)
[2021-12-22] MEDS: Escitalopram Oxalate 20 MG TABLET PO (09:15)
--- NOTE | 2021-12-22 13:27 | HO.PSYCHPN ---
Subjective Subjective Date of Service: 12/22/21 Reason For Visit: Unspecified dementia w/o behavioral disturbance Subjective Notes: Conditional Voluntary Interim History: Pt ambulating with walker, less impulsive. When asked how he is doing he reports he is fine. He is [place] and interview is limited due to this. Pt denies any pain. He is only oriented to person. He asks if he can see his . 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 He has not need PRN medications for agitation or combativeness. Medication Compliance: Yes Side effects from medications: No Review of Systems Review of Systems as above. Yes Unobtainable due to mental status Reports Normal hearing present Reports Normal hearing present Mental Status Exam Mental Status Exam Patient Appearance: Well Grooomed Patient Orientation: Person Level of Consciousness: Awake Patient Behavior: Cooperative Mood Description: Constricted Affect Description: Constricted Patient Cognition Impaired: Yes Ability to Follow Directions: Good Speech Pattern: Appropriate Diagnostics Vital Signs (24Hr): Vital Signs - 24 hr 12/24/21 20:40 Temperature 97.5 F Pulse Rate 64 Respiratory Rate 18 Pulse Oximetry 94 BMI result Body Mass Index 29.9 Labs Results: 12/21/21 08:14 12/21/21 08:14 Labs: Laboratory Results - last 48 hr 12/24/21 12/24/21 07:17 07:17 Ammonia 25 Valproic Acid 20.8 L Medications Medications Current Medications Acetaminophen (Acetaminophen 325 Mg Tablet) 650 mg PO Q8H PRN PRN Reason: Pain, Mild (Pain Scale 1-3) Al Hydroxide/Mg Hydroxide (Magnesium Hydrox/Alum Hydrox 30 Ml Oral.Susp) 30 ml PO Q6H PRN PRN Reason: Heartburn/Nausea Allopurinol (Allopurinol 100 Mg Tablet) 100 mg PO DAILY [facility] Last Admin: 12/25/21 10:28 Dose: 100 mg Documented by: Atenolol (Atenolol 25 Mg Tablet) 25 mg PO DAILY [facility]; Protocol Last Admin: 12/25/21 10:27 Dose: 25 mg Documented by: Atorvastatin Calcium (Atorvastatin Calcium 20 Mg Tablet) 20 mg PO BEDTIME [facility] Last Admin: 12/24/21 20:46 Dose: 20 mg Documented by: Clopidogrel Bisulfate (Clopidogrel Bisulfate 75 Mg Tablet) 75 mg PO DAILY [facility] Last Admin: 12/25/21 10:28 Dose: 75 mg Documented by: Cyanocobalamin (Cyanocobalamin (Vitamin B-12) 500 Mcg Tablet) 500 mcg PO DAILY [facility] Last Admin: 12/25/21 10:28 Dose: 500 mcg Documented by: Divalproex Sodium (Divalproex Sodium Sprinkles 125 Mg ) 125 mg PO TID [facility] Last Admin: 12/25/21 10:27 Dose: 125 mg Documented by: Escitalopram Oxalate (Escitalopram Oxalate 20 Mg Tablet) 20 mg PO DAILY [facility] Last Admin: 12/25/21 10:27 Dose: 20 mg Documented by: Famotidine (Famotidine 20 Mg Tablet) 20 mg PO DAILY [facility] Last Admin: 12/25/21 10:28 Dose: 20 mg Documented by: Folic Acid (Folic Acid 1 Mg Tablet) 1 mg PO DAILY [facility] Last Admin: 12/25/21 10:27 Dose: 1 mg Documented by: Hydroxyzine HCl (Hydroxyzine Hcl 25 Mg Tablet) 25 mg PO BEDTIME PRN PRN Reason: Anxiety Last Admin: 12/22/21 21:09 Dose: 25 mg Documented by: Magnesium Hydroxide (Milk Of Magnesia 30 Ml Oral.Susp) 30 ml PO DAILY PRN PRN Reason: Constipation Magnesium Oxide (Magnesium Oxide 400 Mg Tablet) 400 mg PO BIDPC [facility] Last Admin: 12/25/21 10:27 Dose: 400 mg Documented by: Multivitamins/Vitamin C (Multivitamin Tablet) 1 tab PO DAILY [facility] Last Admin: 12/25/21 10:27 Dose: 1 tab Documented by: Nystatin (Nystatin Ointment 15 Gm Tube) 1 appl TOPICAL BID [facility]; Protocol Last Admin: 12/25/21 10:38 Dose: Not Given Documented by: Olanzapine (Olanzapine 5 Mg Tablet) 5 mg PO Q4H PRN PRN Reason: agitation Last Admin: 12/21/21 13:01 Dose: 5 mg Documented by: Risperidone (Risperidone 1 Mg Tablet) 1 mg PO BID [facility] Last Admin: 12/25/21 10:27 Dose: 1 mg Documented by: Spironolactone (Spironolactone 25 Mg Tablet) 25 mg PO DAILY [facility]; Protocol Last Admin: 12/25/21 10:28 Dose: 25 mg Documented by: Trazodone HCl (Trazodone Hcl 50 Mg Tablet) 50 mg PO BEDTIME PRN PRN Reason: Insomnia Last Admin: 12/22/21 21:09 Dose: 50 mg Documented by: Vitamin D (Cholecalciferol (Vitamin D3) 10 Mcg Tablet) 10 mcg PO DAILY [facility] Last Admin: 12/25/21 10:27 Dose: 10 mcg Documented by: Allergies Allergies Allergy/AdvReac Type Severity Reaction Status Date / Time aspirin Allergy Unknown Unknown Verified 12/16/21 23:03 egg Allergy Unknown Unknown Verified 12/16/21 22:59 gelatin Allergy Unknown Unknown Verified 12/16/21 22:59 latex Allergy Unknown Unknown Verified 12/16/21 22:59 neomycin Allergy Unknown Unknown Verified 12/16/21 22:59 Sulfa (Sulfonamide Allergy Unknown Unknown Verified 12/16/21 22:59 Antibiotics) sulfamethizole Allergy Unknown Unknown Verified 12/16/21 23:05 warfarin Allergy Unknown Unknown Verified 12/16/21 23:01 tramadol Allergy Unknown Verified 12/16/21 23:01 Assessment & Plan Assessment & Plan (1) 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 As per the report of her daughter, he responded fairly well to Risperdal in the past at a very low dose. Plan 1. Continue same medications as per med reconciliation form. 2. Gather collateral information. 3. continue Risperdal up to 1 mg p.o. b.i.d. May consider mood stabilizer for impulsive behaviors. 3/5- added depakote 125mg po TID for impulsive behaviors, repeat CMP- increase Cr from previous days, mild hyperkalemia. consult with who advised to stop lisinopril, no need for fluids at this time. 3/6 continue current medications. I spent minutes with the patient and/or on the patient floor today, greater than?50% of which was spent counseling/coordinating care. Reason for contiued inpatient stay Substantial Risk for: inability to function
[2021-12-22 20:22] VITALS: BP 103/55; PULSE 73; RESP 16; TEMP 36.3; O2SAT 93
[2021-12-22] MEDS: Atorvastatin Calcium 20 MG TABLET PO (20:56)
[2021-12-22] MEDS: hydrOXYzine HCL 25 MG TABLET PO (21:09)
[2021-12-22] MEDS: traZODone HCL 50 MG TABLET PO (21:09)
[2021-12-22] MEDS: Nystatin Ointment 15 GM TUBE 1 APPL TOPICAL (21:24)
[2021-12-23 09:05] VITALS: BP 120/62; PULSE 66; RESP 18; TEMP 36.4; O2SAT 94
[2021-12-23] MEDS: Cyanocobalamin (Vitamin B-12) 500 MCG TABLET PO (09:21)
[2021-12-23] MEDS: Clopidogrel Bisulfate 75 MG TABLET PO (09:21)
[2021-12-23] MEDS: atenoloL 25 MG TABLET PO (09:21)
[2021-12-23] MEDS: Divalproex Sodium Sprinkles 125 MG CAP.DR.SPR PO ×3 (09:21→21:10)
[2021-12-23] MEDS: Folic Acid 1 MG TABLET PO (09:21)
[2021-12-23] MEDS: Multivitamin TABLET 1 TAB PO (09:21)
[2021-12-23] MEDS: Spironolactone 25 MG TABLET PO (09:22)
[2021-12-23] MEDS: Escitalopram Oxalate 20 MG TABLET PO (09:22)
[2021-12-23] MEDS: Nystatin Ointment 15 GM TUBE 1 APPL TOPICAL (09:22)
[2021-12-23] MEDS: risperiDONE 1 MG TABLET PO ×2 (09:22→21:10)
[2021-12-23] MEDS: Cholecalciferol (Vitamin D3) 10 MCG TABLET PO (09:22)
[2021-12-23] MEDS: Famotidine 20 MG TABLET PO (09:22)
[2021-12-23] MEDS: Magnesium Oxide 400 MG TABLET PO ×2 (09:22→21:10)
[2021-12-23] MEDS: allopurinoL 100 MG TABLET PO (09:22)
--- NOTE | 2021-12-23 13:30 | P.PNPSI_ITS ---
Subjective Subjective Date of Service: 12/23/21 Reason For Visit: Unspecified dementia w/o behavioral disturbance Subjective Notes: Conditional Voluntary Interim History: Pt continues ambulating with walker, less impulsive, no falls. Pt sitting with 1:1 having lunch. He is [place] and interview is limited due to this. Pt denies any pain. He is only oriented to person. He thought (or heard) that I was telling him to eat his food, which upset him as he reports he does not like it. He asks if he can see his . 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 He has not needed PRN medications for agitation or combativeness. Medication Compliance: Yes Side effects from medications: No Review of Systems Review of Systems as above. Yes Unobtainable due to mental status Reports Normal hearing present Reports Normal hearing present Mental Status Exam Mental Status Exam Patient Appearance: Well Grooomed Patient Orientation: Person Level of Consciousness: Awake Patient Behavior: Cooperative Mood Description: Constricted Affect Description: Constricted Patient Cognition Impaired: Yes Ability to Follow Directions: Good Speech Pattern: Appropriate Diagnostics Vital Signs (24Hr): Vital Signs - 24 hr 12/24/21 20:40 Temperature 97.5 F Pulse Rate 64 Respiratory Rate 18 Pulse Oximetry 94 BMI result Body Mass Index 29.9 Labs Results: 12/21/21 08:14 12/21/21 08:14 Labs: Laboratory Results - last 48 hr 12/24/21 12/24/21 07:17 07:17 Ammonia 25 Valproic Acid 20.8 L Medications Medications Current Medications Acetaminophen (Acetaminophen 325 Mg Tablet) 650 mg PO Q8H PRN PRN Reason: Pain, Mild (Pain Scale 1-3) Al Hydroxide/Mg Hydroxide (Magnesium Hydrox/Alum Hydrox 30 Ml Oral.Susp) 30 ml PO Q6H PRN PRN Reason: Heartburn/Nausea Allopurinol (Allopurinol 100 Mg Tablet) 100 mg PO DAILY [facility] Last Admin: 12/25/21 10:28 Dose: 100 mg Documented by: Atenolol (Atenolol 25 Mg Tablet) 25 mg PO DAILY [facility]; Protocol Last Admin: 12/25/21 10:27 Dose: 25 mg Documented by: Atorvastatin Calcium (Atorvastatin Calcium 20 Mg Tablet) 20 mg PO BEDTIME [facility] Last Admin: 12/24/21 20:46 Dose: 20 mg Documented by: Clopidogrel Bisulfate (Clopidogrel Bisulfate 75 Mg Tablet) 75 mg PO DAILY [facility] Last Admin: 12/25/21 10:28 Dose: 75 mg Documented by: Cyanocobalamin (Cyanocobalamin (Vitamin B-12) 500 Mcg Tablet) 500 mcg PO DAILY [facility] Last Admin: 12/25/21 10:28 Dose: 500 mcg Documented by: Divalproex Sodium (Divalproex Sodium Sprinkles 125 Mg ) 125 mg PO TID [facility] Last Admin: 12/25/21 10:27 Dose: 125 mg Documented by: Escitalopram Oxalate (Escitalopram Oxalate 20 Mg Tablet) 20 mg PO DAILY [facility] Last Admin: 12/25/21 10:27 Dose: 20 mg Documented by: Famotidine (Famotidine 20 Mg Tablet) 20 mg PO DAILY [facility] Last Admin: 12/25/21 10:28 Dose: 20 mg Documented by: Folic Acid (Folic Acid 1 Mg Tablet) 1 mg PO DAILY [facility] Last Admin: 12/25/21 10:27 Dose: 1 mg Documented by: Hydroxyzine HCl (Hydroxyzine Hcl 25 Mg Tablet) 25 mg PO BEDTIME PRN PRN Reason: Anxiety Last Admin: 12/22/21 21:09 Dose: 25 mg Documented by: Magnesium Hydroxide (Milk Of Magnesia 30 Ml Oral.Susp) 30 ml PO DAILY PRN PRN Reason: Constipation Magnesium Oxide (Magnesium Oxide 400 Mg Tablet) 400 mg PO BIDPC [facility] Last Admin: 12/25/21 10:27 Dose: 400 mg Documented by: Multivitamins/Vitamin C (Multivitamin Tablet) 1 tab PO DAILY [facility] Last Admin: 12/25/21 10:27 Dose: 1 tab Documented by: Nystatin (Nystatin Ointment 15 Gm Tube) 1 appl TOPICAL BID [facility]; Protocol Last Admin: 12/25/21 10:38 Dose: Not Given Documented by: Olanzapine (Olanzapine 5 Mg Tablet) 5 mg PO Q4H PRN PRN Reason: agitation Last Admin: 12/21/21 13:01 Dose: 5 mg Documented by: Risperidone (Risperidone 1 Mg Tablet) 1 mg PO BID [facility] Last Admin: 12/25/21 10:27 Dose: 1 mg Documented by: Spironolactone (Spironolactone 25 Mg Tablet) 25 mg PO DAILY [facility]; Protocol Last Admin: 12/25/21 10:28 Dose: 25 mg Documented by: Trazodone HCl (Trazodone Hcl 50 Mg Tablet) 50 mg PO BEDTIME PRN PRN Reason: Insomnia Last Admin: 12/22/21 21:09 Dose: 50 mg Documented by: Vitamin D (Cholecalciferol (Vitamin D3) 10 Mcg Tablet) 10 mcg PO DAILY [facility] Last Admin: 12/25/21 10:27 Dose: 10 mcg Documented by: Allergies Allergies Allergy/AdvReac Type Severity Reaction Status Date / Time aspirin Allergy Unknown Unknown Verified 12/16/21 23:03 egg Allergy Unknown Unknown Verified 12/16/21 22:59 gelatin Allergy Unknown Unknown Verified 12/16/21 22:59 latex Allergy Unknown Unknown Verified 12/16/21 22:59 neomycin Allergy Unknown Unknown Verified 12/16/21 22:59 Sulfa (Sulfonamide Allergy Unknown Unknown Verified 12/16/21 22:59 Antibiotics) sulfamethizole Allergy Unknown Unknown Verified 12/16/21 23:05 warfarin Allergy Unknown Unknown Verified 12/16/21 23:01 tramadol Allergy Unknown Verified 12/16/21 23:01 Assessment & Plan Assessment & Plan (1) 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 As per the report of her daughter, he responded fairly well to Risperdal in the past at a very low dose. Plan 1. Continue same medications as per med reconciliation form. 2. Gather collateral information. 3. continue Risperdal up to 1 mg p.o. b.i.d. May consider mood stabilizer for impulsive behaviors. 3/5- added depakote 125mg po TID for impulsive behaviors, repeat CMP- increase Cr from previous days, mild hyperkalemia. consult with who advised to stop lisinopril, no need for fluids at this time. 3/6 continue current medications. I spent minutes with the patient and/or on the patient floor today, greater than?50% of which was spent counseling/coordinating care. Reason for contiued inpatient stay Substantial Risk for: inability to function
[2021-12-23 14:43] VITALS: BP 120/62; PULSE 66; O2SAT 94
[2021-12-23] MEDS: Atorvastatin Calcium 20 MG TABLET PO (21:10)
[2021-12-23 21:40] VITALS: BP 154/72; PULSE 63; RESP 16; TEMP 36.6; O2SAT 95
[2021-12-24 07:37] LABS: Ammonia 25 umol/L (13-55)
[2021-12-24 08:00] VITALS: BP 90/63; PULSE 68; RESP 16; TEMP 35.9; O2SAT 95
[2021-12-24 08:02] LABS: Valproate 20.8 mcg/mL (50.0-100.0)
[2021-12-24] MEDS: Cholecalciferol (Vitamin D3) 10 MCG TABLET PO (09:24)
[2021-12-24] MEDS: Folic Acid 1 MG TABLET PO (09:24)
[2021-12-24] MEDS: Divalproex Sodium Sprinkles 125 MG CAP.DR.SPR PO ×3 (09:24→20:46)
[2021-12-24] MEDS: Spironolactone 25 MG TABLET PO (09:25)
[2021-12-24] MEDS: Magnesium Oxide 400 MG TABLET PO ×2 (09:25→17:59)
[2021-12-24] MEDS: Multivitamin TABLET 1 TAB PO (09:25)
[2021-12-24] MEDS: Clopidogrel Bisulfate 75 MG TABLET PO (09:25)
[2021-12-24] MEDS: allopurinoL 100 MG TABLET PO (09:25)
[2021-12-24] MEDS: risperiDONE 1 MG TABLET PO ×2 (09:25→20:47)
[2021-12-24] MEDS: Cyanocobalamin (Vitamin B-12) 500 MCG TABLET PO (09:25)
[2021-12-24] MEDS: Famotidine 20 MG TABLET PO (09:25)
[2021-12-24] MEDS: Escitalopram Oxalate 20 MG TABLET PO (09:25)
--- NOTE | 2021-12-24 13:40 | HO.PSYCHPN ---
Subjective Subjective Date of Service: 12/24/21 Reason For Visit: Unspecified dementia w/o behavioral disturbance Interim History: Pt continues ambulating with walker, less impulsive, no falls. Pt sitting with 1:1 due to safety having lunch. He is [place] and interview is limited due to this. Pt denies any pain. He is only oriented to person. He reports he does not live here but comes here often and volunteer. 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 He has not needed PRN medications for agitation or combativeness. He reports problems with dentures- loose. denies dental pain Medication Compliance: Yes Side effects from medications: No Attending Groups: No Review of Systems Review of Systems as above. Yes Unobtainable due to mental status Reports Normal hearing present Reports Normal hearing present Mental Status Exam Mental Status Exam Patient Appearance: Well Grooomed Patient Orientation: Person Level of Consciousness: Awake Patient Behavior: Cooperative Mood Description: Constricted Affect Description: Constricted Patient Cognition Impaired: Yes Ability to Follow Directions: Good Speech Pattern: Appropriate Diagnostics Vital Signs (24Hr): Vital Signs - 24 hr 12/24/21 20:40 Temperature 97.5 F Pulse Rate 64 Respiratory Rate 18 Pulse Oximetry 94 BMI result Body Mass Index 29.9 Labs Results: 12/21/21 08:14 12/21/21 08:14 Labs: Laboratory Results - last 48 hr 12/24/21 12/24/21 07:17 07:17 Ammonia 25 Valproic Acid 20.8 L Medications Medications Current Medications Acetaminophen (Acetaminophen 325 Mg Tablet) 650 mg PO Q8H PRN PRN Reason: Pain, Mild (Pain Scale 1-3) Al Hydroxide/Mg Hydroxide (Magnesium Hydrox/Alum Hydrox 30 Ml Oral.Susp) 30 ml PO Q6H PRN PRN Reason: Heartburn/Nausea Allopurinol (Allopurinol 100 Mg Tablet) 100 mg PO DAILY [facility] Last Admin: 12/25/21 10:28 Dose: 100 mg Documented by: Atenolol (Atenolol 25 Mg Tablet) 25 mg PO DAILY [facility]; Protocol Last Admin: 12/25/21 10:27 Dose: 25 mg Documented by: Atorvastatin Calcium (Atorvastatin Calcium 20 Mg Tablet) 20 mg PO BEDTIME [facility] Last Admin: 12/24/21 20:46 Dose: 20 mg Documented by: Clopidogrel Bisulfate (Clopidogrel Bisulfate 75 Mg Tablet) 75 mg PO DAILY [facility] Last Admin: 12/25/21 10:28 Dose: 75 mg Documented by: Cyanocobalamin (Cyanocobalamin (Vitamin B-12) 500 Mcg Tablet) 500 mcg PO DAILY [facility] Last Admin: 12/25/21 10:28 Dose: 500 mcg Documented by: Divalproex Sodium (Divalproex Sodium Sprinkles 125 Mg ) 125 mg PO TID [facility] Last Admin: 12/25/21 10:27 Dose: 125 mg Documented by: Escitalopram Oxalate (Escitalopram Oxalate 20 Mg Tablet) 20 mg PO DAILY [facility] Last Admin: 12/25/21 10:27 Dose: 20 mg Documented by: Famotidine (Famotidine 20 Mg Tablet) 20 mg PO DAILY [facility] Last Admin: 12/25/21 10:28 Dose: 20 mg Documented by: Folic Acid (Folic Acid 1 Mg Tablet) 1 mg PO DAILY [facility] Last Admin: 12/25/21 10:27 Dose: 1 mg Documented by: Hydroxyzine HCl (Hydroxyzine Hcl 25 Mg Tablet) 25 mg PO BEDTIME PRN PRN Reason: Anxiety Last Admin: 12/22/21 21:09 Dose: 25 mg Documented by: Magnesium Hydroxide (Milk Of Magnesia 30 Ml Oral.Susp) 30 ml PO DAILY PRN PRN Reason: Constipation Magnesium Oxide (Magnesium Oxide 400 Mg Tablet) 400 mg PO BIDPC [facility] Last Admin: 12/25/21 10:27 Dose: 400 mg Documented by: Multivitamins/Vitamin C (Multivitamin Tablet) 1 tab PO DAILY [facility] Last Admin: 12/25/21 10:27 Dose: 1 tab Documented by: Nystatin (Nystatin Ointment 15 Gm Tube) 1 appl TOPICAL BID [facility]; Protocol Last Admin: 12/25/21 10:38 Dose: Not Given Documented by: Olanzapine (Olanzapine 5 Mg Tablet) 5 mg PO Q4H PRN PRN Reason: agitation Last Admin: 12/21/21 13:01 Dose: 5 mg Documented by: Risperidone (Risperidone 1 Mg Tablet) 1 mg PO BID [facility] Last Admin: 12/25/21 10:27 Dose: 1 mg Documented by: Spironolactone (Spironolactone 25 Mg Tablet) 25 mg PO DAILY [facility]; Protocol Last Admin: 12/25/21 10:28 Dose: 25 mg Documented by: Trazodone HCl (Trazodone Hcl 50 Mg Tablet) 50 mg PO BEDTIME PRN PRN Reason: Insomnia Last Admin: 12/22/21 21:09 Dose: 50 mg Documented by: Vitamin D (Cholecalciferol (Vitamin D3) 10 Mcg Tablet) 10 mcg PO DAILY [facility] Last Admin: 12/25/21 10:27 Dose: 10 mcg Documented by: Allergies Allergies Allergy/AdvReac Type Severity Reaction Status Date / Time aspirin Allergy Unknown Unknown Verified 12/16/21 23:03 egg Allergy Unknown Unknown Verified 12/16/21 22:59 gelatin Allergy Unknown Unknown Verified 12/16/21 22:59 latex Allergy Unknown Unknown Verified 12/16/21 22:59 neomycin Allergy Unknown Unknown Verified 12/16/21 22:59 Sulfa (Sulfonamide Allergy Unknown Unknown Verified 12/16/21 22:59 Antibiotics) sulfamethizole Allergy Unknown Unknown Verified 12/16/21 23:05 warfarin Allergy Unknown Unknown Verified 12/16/21 23:01 tramadol Allergy Unknown Verified 12/16/21 23:01 Assessment & Plan Assessment & Plan (1) 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 As per the report of her daughter, he responded fairly well to Risperdal in the past at a very low dose. Plan 1. Continue same medications as per med reconciliation form. 2. Gather collateral information. 3. continue Risperdal up to 1 mg p.o. b.i.d. May consider mood stabilizer for impulsive behaviors. 3/5- added depakote 125mg po TID for impulsive behaviors, repeat CMP- increase Cr from previous days, mild hyperkalemia. consult with who advised to stop lisinopril, no need for fluids at this time. 3/6 continue current medications. I spent minutes with the patient and/or on the patient floor today, greater than?50% of which was spent counseling/coordinating care. Reason for contiued inpatient stay Substantial Risk for: inability to function
[2021-12-24 20:40] VITALS: PULSE 64; RESP 18; TEMP 36.4; O2SAT 94
[2021-12-24] MEDS: Atorvastatin Calcium 20 MG TABLET PO (20:46)
[2021-12-24] MEDS: Nystatin Ointment 15 GM TUBE 1 APPL TOPICAL (20:58)
[2021-12-25 06:00] VITALS: BP 130/63; PULSE 84; RESP 14; TEMP 36.2; O2SAT 94
[2021-12-25 07:00] VITALS: BMI 30.4
[2021-12-25] MEDS: Magnesium Oxide 400 MG TABLET PO ×2 (10:27→16:36)
[2021-12-25] MEDS: Folic Acid 1 MG TABLET PO (10:27)
[2021-12-25] MEDS: Multivitamin TABLET 1 TAB PO (10:27)
[2021-12-25] MEDS: Escitalopram Oxalate 20 MG TABLET PO (10:27)
[2021-12-25] MEDS: Cholecalciferol (Vitamin D3) 10 MCG TABLET PO (10:27)
[2021-12-25] MEDS: risperiDONE 1 MG TABLET PO ×2 (10:27→20:28)
[2021-12-25] MEDS: Divalproex Sodium Sprinkles 125 MG CAP.DR.SPR PO ×3 (10:27→20:28)
[2021-12-25] MEDS: atenoloL 25 MG TABLET PO (10:27)
[2021-12-25] MEDS: allopurinoL 100 MG TABLET PO (10:28)
[2021-12-25] MEDS: Spironolactone 25 MG TABLET PO (10:28)
[2021-12-25] MEDS: Clopidogrel Bisulfate 75 MG TABLET PO (10:28)
[2021-12-25] MEDS: Cyanocobalamin (Vitamin B-12) 500 MCG TABLET PO (10:28)
[2021-12-25] MEDS: Famotidine 20 MG TABLET PO (10:28)
--- NOTE | 2021-12-25 13:42 | HO.PSYCHPN ---
Subjective Subjective Date of Service: 12/25/21 Reason For Visit: Unspecified dementia w/o behavioral disturbance Subjective Notes: Conditional Voluntary Interim History: Pt continues ambulating with walker, less impulsive, no falls. He did well on 5 mins checks most of the day yesterday. Will try 15 minutes checks today. He is [place] and interview is limited due to this. Pt denies any pain. He is only oriented to person. 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 He smiles at times. He has not needed PRN medications for agitation or combativeness. He reports problems with dentures- loose. denies dental pain Review of Systems Review of Systems as above. Yes Unobtainable due to mental status Reports Normal hearing present Reports Normal hearing present Mental Status Exam Mental Status Exam Patient Appearance: Well Grooomed Patient Orientation: Person Level of Consciousness: Awake Patient Behavior: Cooperative Mood Description: Constricted Affect Description: Constricted Patient Cognition Impaired: Yes Ability to Follow Directions: Good Speech Pattern: Appropriate Diagnostics Vital Signs (24Hr): Vital Signs - 24 hr 12/24/21 20:40 Temperature 97.5 F Pulse Rate 64 Respiratory Rate 18 Pulse Oximetry 94 BMI result Body Mass Index 29.9 Labs Results: 12/21/21 08:14 12/21/21 08:14 Labs: Laboratory Results - last 48 hr 12/24/21 12/24/21 07:17 07:17 Ammonia 25 Valproic Acid 20.8 L Medications Medications Current Medications Acetaminophen (Acetaminophen 325 Mg Tablet) 650 mg PO Q8H PRN PRN Reason: Pain, Mild (Pain Scale 1-3) Al Hydroxide/Mg Hydroxide (Magnesium Hydrox/Alum Hydrox 30 Ml Oral.Susp) 30 ml PO Q6H PRN PRN Reason: Heartburn/Nausea Allopurinol (Allopurinol 100 Mg Tablet) 100 mg PO DAILY [facility] Last Admin: 12/25/21 10:28 Dose: 100 mg Documented by: Atenolol (Atenolol 25 Mg Tablet) 25 mg PO DAILY [facility]; Protocol Last Admin: 12/25/21 10:27 Dose: 25 mg Documented by: Atorvastatin Calcium (Atorvastatin Calcium 20 Mg Tablet) 20 mg PO BEDTIME [facility] Last Admin: 12/24/21 20:46 Dose: 20 mg Documented by: Clopidogrel Bisulfate (Clopidogrel Bisulfate 75 Mg Tablet) 75 mg PO DAILY [facility] Last Admin: 12/25/21 10:28 Dose: 75 mg Documented by: Cyanocobalamin (Cyanocobalamin (Vitamin B-12) 500 Mcg Tablet) 500 mcg PO DAILY [facility] Last Admin: 12/25/21 10:28 Dose: 500 mcg Documented by: Divalproex Sodium (Divalproex Sodium Sprinkles 125 Mg ) 125 mg PO TID [facility] Last Admin: 12/25/21 10:27 Dose: 125 mg Documented by: Escitalopram Oxalate (Escitalopram Oxalate 20 Mg Tablet) 20 mg PO DAILY [facility] Last Admin: 12/25/21 10:27 Dose: 20 mg Documented by: Famotidine (Famotidine 20 Mg Tablet) 20 mg PO DAILY [facility] Last Admin: 12/25/21 10:28 Dose: 20 mg Documented by: Folic Acid (Folic Acid 1 Mg Tablet) 1 mg PO DAILY [facility] Last Admin: 12/25/21 10:27 Dose: 1 mg Documented by: Hydroxyzine HCl (Hydroxyzine Hcl 25 Mg Tablet) 25 mg PO BEDTIME PRN PRN Reason: Anxiety Last Admin: 12/22/21 21:09 Dose: 25 mg Documented by: Magnesium Hydroxide (Milk Of Magnesia 30 Ml Oral.Susp) 30 ml PO DAILY PRN PRN Reason: Constipation Magnesium Oxide (Magnesium Oxide 400 Mg Tablet) 400 mg PO BIDPC [facility] Last Admin: 12/25/21 10:27 Dose: 400 mg Documented by: Multivitamins/Vitamin C (Multivitamin Tablet) 1 tab PO DAILY [facility] Last Admin: 12/25/21 10:27 Dose: 1 tab Documented by: Nystatin (Nystatin Ointment 15 Gm Tube) 1 appl TOPICAL BID [facility]; Protocol Last Admin: 12/25/21 10:38 Dose: Not Given Documented by: Olanzapine (Olanzapine 5 Mg Tablet) 5 mg PO Q4H PRN PRN Reason: agitation Last Admin: 12/21/21 13:01 Dose: 5 mg Documented by: Risperidone (Risperidone 1 Mg Tablet) 1 mg PO BID [facility] Last Admin: 12/25/21 10:27 Dose: 1 mg Documented by: Spironolactone (Spironolactone 25 Mg Tablet) 25 mg PO DAILY [facility]; Protocol Last Admin: 12/25/21 10:28 Dose: 25 mg Documented by: Trazodone HCl (Trazodone Hcl 50 Mg Tablet) 50 mg PO BEDTIME PRN PRN Reason: Insomnia Last Admin: 12/22/21 21:09 Dose: 50 mg Documented by: Vitamin D (Cholecalciferol (Vitamin D3) 10 Mcg Tablet) 10 mcg PO DAILY [facility] Last Admin: 12/25/21 10:27 Dose: 10 mcg Documented by: Allergies Allergies Allergy/AdvReac Type Severity Reaction Status Date / Time aspirin Allergy Unknown Unknown Verified 12/16/21 23:03 egg Allergy Unknown Unknown Verified 12/16/21 22:59 gelatin Allergy Unknown Unknown Verified 12/16/21 22:59 latex Allergy Unknown Unknown Verified 12/16/21 22:59 neomycin Allergy Unknown Unknown Verified 12/16/21 22:59 Sulfa (Sulfonamide Allergy Unknown Unknown Verified 12/16/21 22:59 Antibiotics) sulfamethizole Allergy Unknown Unknown Verified 12/16/21 23:05 warfarin Allergy Unknown Unknown Verified 12/16/21 23:01 tramadol Allergy Unknown Verified 12/16/21 23:01 Assessment & Plan Assessment & Plan (1) Major neurocognitive disorder: Status: Acute Code(s): F03.90 - Unspecified dementia without behavioral disturbance (2) CKD (chronic kidney disease): Status: Acute Code(s): N18.9 - Chronic kidney disease, unspecified Plan The patient is an 85-year-old male with a history of dementia that in the last 2 or 3 months his condition has worsened with increased agitation, paranoia delusions and disorganized behavior. As per the report of her daughter, he responded fairly well to Risperdal in the past at a very low dose. Plan 1. Continue same medications as per med reconciliation form. 2. Gather collateral information. 3. continue Risperdal up to 1 mg p.o. b.i.d. May consider mood stabilizer for impulsive behaviors. 12/20- added depakote 125mg po TID for impulsive behaviors, repeat CMP- increase Cr from previous days, mild hyperkalemia. consult with who advised to stop lisinopril, no need for fluids at this time. 12/21 continue current medications. 12/25- changed to 15 minutes checks for safety as pt presents as less impulsive, ambulating safely with walker. check depakote level. I spent minutes with the patient and/or on the patient floor today, greater than?50% of which was spent counseling/coordinating care. Reason for contiued inpatient stay Substantial Risk for: inability to function
[2021-12-25 19:00] VITALS: BP 119/62; PULSE 71; RESP 18; TEMP 36.1; O2SAT 95
[2021-12-25] MEDS: Atorvastatin Calcium 20 MG TABLET PO (20:28)
[2021-12-26 08:00] VITALS: BP 135/63; PULSE 58; RESP 12; TEMP 36.2; O2SAT 96
[2021-12-26] MEDS: risperiDONE 1 MG TABLET PO ×2 (10:48→19:42)
[2021-12-26] MEDS: Clopidogrel Bisulfate 75 MG TABLET PO (10:49)
[2021-12-26] MEDS: Cyanocobalamin (Vitamin B-12) 500 MCG TABLET PO (10:49)
[2021-12-26] MEDS: atenoloL 25 MG TABLET PO (10:49)
[2021-12-26] MEDS: Divalproex Sodium Sprinkles 125 MG CAP.DR.SPR PO ×3 (10:49→19:42)
[2021-12-26] MEDS: Escitalopram Oxalate 20 MG TABLET PO (10:49)
[2021-12-26] MEDS: Folic Acid 1 MG TABLET PO (10:49)
[2021-12-26] MEDS: Spironolactone 25 MG TABLET PO (10:49)
[2021-12-26] MEDS: Magnesium Oxide 400 MG TABLET PO ×2 (10:49→17:34)
[2021-12-26] MEDS: allopurinoL 100 MG TABLET PO (10:50)
[2021-12-26] MEDS: Multivitamin TABLET 1 TAB PO (10:50)
[2021-12-26] MEDS: Famotidine 20 MG TABLET PO (10:50)
[2021-12-26] MEDS: Cholecalciferol (Vitamin D3) 10 MCG TABLET PO (10:50)
--- NOTE | 2021-12-26 14:21 | HO.PSYCHPN ---
Subjective Subjective Date of Service: 12/26/21 Reason For Visit: Unspecified dementia w/o behavioral disturbance Subjective Notes: Conditional Voluntary Interim History: Pt continues ambulating with walker, less impulsive, no falls. He is currently on 15 mins checks, no falls, steady gait. [place] which limits interview. Pt reports doing fine, smiles. He denies SI/HI. Per nursing, pt sleeping, eating well. No irritability. Medication Compliance: Yes Side effects from medications: No Review of Systems Review of Systems as above. Yes Unobtainable due to mental status Reports Normal hearing present Reports Normal hearing present Mental Status Exam Mental Status Exam Patient Appearance: Well Grooomed Patient Orientation: Person Level of Consciousness: Awake Patient Behavior: Cooperative Mood Description: Constricted Affect Description: Constricted Patient Cognition Impaired: Yes Ability to Follow Directions: Good Speech Pattern: Appropriate Diagnostics Vital Signs (24Hr): Vital Signs - 24 hr 12/25/21 19:00 12/26/21 08:00 Temperature 97 F 97.2 F Pulse Rate 71 58 Respiratory Rate 18 12 Blood Pressure 119/62 135/63 Pulse Oximetry 95 96 BMI result Body Mass Index 30.4 Labs Results: 12/21/21 08:14 12/21/21 08:14 Medications Medications Current Medications Acetaminophen (Acetaminophen 325 Mg Tablet) 650 mg PO Q8H PRN PRN Reason: Pain, Mild (Pain Scale 1-3) Al Hydroxide/Mg Hydroxide (Magnesium Hydrox/Alum Hydrox 30 Ml Oral.Susp) 30 ml PO Q6H PRN PRN Reason: Heartburn/Nausea Allopurinol (Allopurinol 100 Mg Tablet) 100 mg PO DAILY [facility] Last Admin: 12/26/21 10:50 Dose: 100 mg Documented by: Atenolol (Atenolol 25 Mg Tablet) 25 mg PO DAILY [facility]; Protocol Last Admin: 12/26/21 10:49 Dose: 25 mg Documented by: Atorvastatin Calcium (Atorvastatin Calcium 20 Mg Tablet) 20 mg PO BEDTIME [facility] Last Admin: 12/25/21 20:28 Dose: 20 mg Documented by: Clopidogrel Bisulfate (Clopidogrel Bisulfate 75 Mg Tablet) 75 mg PO DAILY [facility] Last Admin: 12/26/21 10:49 Dose: 75 mg Documented by: Cyanocobalamin (Cyanocobalamin (Vitamin B-12) 500 Mcg Tablet) 500 mcg PO DAILY [facility] Last Admin: 12/26/21 10:49 Dose: 500 mcg Documented by: Divalproex Sodium (Divalproex Sodium Sprinkles 125 Mg ) 125 mg PO TID [facility] Last Admin: 12/26/21 14:25 Dose: 125 mg Documented by: Escitalopram Oxalate (Escitalopram Oxalate 20 Mg Tablet) 20 mg PO DAILY [facility] Last Admin: 12/26/21 10:49 Dose: 20 mg Documented by: Famotidine (Famotidine 20 Mg Tablet) 20 mg PO DAILY [facility] Last Admin: 12/26/21 10:50 Dose: 20 mg Documented by: Folic Acid (Folic Acid 1 Mg Tablet) 1 mg PO DAILY [facility] Last Admin: 12/26/21 10:49 Dose: 1 mg Documented by: Hydroxyzine HCl (Hydroxyzine Hcl 25 Mg Tablet) 25 mg PO BEDTIME PRN PRN Reason: Anxiety Last Admin: 12/22/21 21:09 Dose: 25 mg Documented by: Magnesium Hydroxide (Milk Of Magnesia 30 Ml Oral.Susp) 30 ml PO DAILY PRN PRN Reason: Constipation Magnesium Oxide (Magnesium Oxide 400 Mg Tablet) 400 mg PO BIDPC [facility] Last Admin: 12/26/21 10:49 Dose: 400 mg Documented by: Multivitamins/Vitamin C (Multivitamin Tablet) 1 tab PO DAILY [facility] Last Admin: 12/26/21 10:50 Dose: 1 tab Documented by: Nystatin (Nystatin Ointment 15 Gm Tube) 1 appl TOPICAL BID [facility]; Protocol Last Admin: 12/26/21 10:59 Dose: Not Given Documented by: Olanzapine (Olanzapine 5 Mg Tablet) 5 mg PO Q4H PRN PRN Reason: agitation Last Admin: 12/21/21 13:01 Dose: 5 mg Documented by: Risperidone (Risperidone 1 Mg Tablet) 1 mg PO BID [facility] Last Admin: 12/26/21 10:48 Dose: 1 mg Documented by: Spironolactone (Spironolactone 25 Mg Tablet) 25 mg PO DAILY [facility]; Protocol Last Admin: 12/26/21 10:49 Dose: 25 mg Documented by: Trazodone HCl (Trazodone Hcl 50 Mg Tablet) 50 mg PO BEDTIME PRN PRN Reason: Insomnia Last Admin: 12/22/21 21:09 Dose: 50 mg Documented by: Vitamin D (Cholecalciferol (Vitamin D3) 10 Mcg Tablet) 10 mcg PO DAILY [facility] Last Admin: 12/26/21 10:50 Dose: 10 mcg Documented by: Allergies Allergies Allergy/AdvReac Type Severity Reaction Status Date / Time aspirin Allergy Unknown Unknown Verified 12/16/21 23:03 egg Allergy Unknown Unknown Verified 12/16/21 22:59 gelatin Allergy Unknown Unknown Verified 12/16/21 22:59 latex Allergy Unknown Unknown Verified 12/16/21 22:59 neomycin Allergy Unknown Unknown Verified 12/16/21 22:59 Sulfa (Sulfonamide Allergy Unknown Unknown Verified 12/16/21 22:59 Antibiotics) sulfamethizole Allergy Unknown Unknown Verified 12/16/21 23:05 warfarin Allergy Unknown Unknown Verified 12/16/21 23:01 tramadol Allergy Unknown Verified 12/16/21 23:01 Assessment & Plan Assessment & Plan (1) Major neurocognitive disorder: Status: Acute Code(s): F03.90 - Unspecified dementia without behavioral disturbance (2) CKD (chronic kidney disease): Status: Acute Code(s): N18.9 - Chronic kidney disease, unspecified Plan The patient is an 85-year-old male with a history of dementia that in the last 2 or 3 months his condition has worsened with increased agitation, paranoia delusions and disorganized behavior. As per the report of her daughter, he responded fairly well to Risperdal in the past at a very low dose. Plan 1. Continue same medications as per med reconciliation form. 2. Gather collateral information. 3. continue Risperdal up to 1 mg p.o. b.i.d. May consider mood stabilizer for impulsive behaviors. 12/20- added depakote 125mg po TID for impulsive behaviors, repeat CMP- increase Cr from previous days, mild hyperkalemia. consult with who advised to stop lisinopril, no need for fluids at this time. 12/21 continue current medications. 12/25- changed to 15 minutes checks for safety as pt presents as less impulsive, ambulating safely with walker. check depakote level. I spent minutes with the patient and/or on the patient floor today, greater than?50% of which was spent counseling/coordinating care. Reason for contiued inpatient stay Substantial Risk for: inability to function
[2021-12-26] MEDS: hydrOXYzine HCL 25 MG TABLET PO (19:42)
[2021-12-26] MEDS: Atorvastatin Calcium 20 MG TABLET PO (19:43)
[2021-12-26 20:35] VITALS: BP 112/64; RESP 17
[2021-12-26 20:56] VITALS: PULSE 69; RESP 17; TEMP 36.6; O2SAT 97
[2021-12-27 09:00] VITALS: BP 129/65; PULSE 66; RESP 14; TEMP 36.2; O2SAT 99
[2021-12-27] MEDS: Magnesium Oxide 400 MG TABLET PO ×2 (09:51→18:31)
[2021-12-27] MEDS: atenoloL 25 MG TABLET PO (09:51)
[2021-12-27] MEDS: Clopidogrel Bisulfate 75 MG TABLET PO (09:51)
[2021-12-27] MEDS: risperiDONE 1 MG TABLET PO ×2 (09:51→20:12)
[2021-12-27] MEDS: Folic Acid 1 MG TABLET PO (09:51)
[2021-12-27] MEDS: Cholecalciferol (Vitamin D3) 10 MCG TABLET PO (09:52)
[2021-12-27] MEDS: Divalproex Sodium Sprinkles 125 MG CAP.DR.SPR PO ×3 (09:52→20:12)
[2021-12-27] MEDS: Escitalopram Oxalate 20 MG TABLET PO (09:52)
[2021-12-27] MEDS: Cyanocobalamin (Vitamin B-12) 500 MCG TABLET PO (09:52)
[2021-12-27] MEDS: allopurinoL 100 MG TABLET PO (09:52)
[2021-12-27] MEDS: Famotidine 20 MG TABLET PO (09:52)
[2021-12-27] MEDS: Spironolactone 25 MG TABLET PO (09:52)
[2021-12-27] MEDS: Multivitamin TABLET 1 TAB PO (09:52)
--- NOTE | 2021-12-27 14:41 | HO.PSYCHPN ---
Subjective Subjective Date of Service: 12/27/21 Reason For Visit: Unspecified dementia w/o behavioral disturbance Interim History: Case reviewed, discussed with staff Patient is sitting at table eating on approach. Mildly confused and asks rfp writer how are they doing? Patient eventually able to say he is referring to his and daughter. He asks if rfp writer knows if his is okay. Not able to engage in meaningful discussion with rfp writer at this time. He denies any complaints and has no requests. Mental Status Exam Mental Status Exam Narrative: Patient Appearance:?Well Grooomed Patient Orientation:?Person Level of Consciousness:?Awake Patient Behavior:?Cooperative Mood Description:?Constricted Affect Description:?Constricted Patient Cognition Impaired:?Yes Ability to Follow Directions:?Good Speech Pattern:?Appropriate Diagnostics Vital Signs (24Hr): Vital Signs - 24 hr 12/26/21 20:35 12/26/21 20:56 12/27/21 09:00 Temperature 97.9 F 97.1 F Pulse Rate 69 66 Respiratory Rate 17 17 14 Blood Pressure 112/64 129/65 Pulse Oximetry 97 99 BMI result Body Mass Index 30.4 Labs Results: 12/21/21 08:14 12/21/21 08:14 Medications Medications Current Medications Acetaminophen (Acetaminophen 325 Mg Tablet) 650 mg PO Q8H PRN PRN Reason: Pain, Mild (Pain Scale 1-3) Al Hydroxide/Mg Hydroxide (Magnesium Hydrox/Alum Hydrox 30 Ml Oral.Susp) 30 ml PO Q6H PRN PRN Reason: Heartburn/Nausea Allopurinol (Allopurinol 100 Mg Tablet) 100 mg PO DAILY [facility] Last Admin: 12/27/21 09:52 Dose: 100 mg Documented by: Atenolol (Atenolol 25 Mg Tablet) 25 mg PO DAILY [facility]; Protocol Last Admin: 12/27/21 09:51 Dose: 25 mg Documented by: Atorvastatin Calcium (Atorvastatin Calcium 20 Mg Tablet) 20 mg PO BEDTIME [facility] Last Admin: 12/26/21 19:43 Dose: 20 mg Documented by: Clopidogrel Bisulfate (Clopidogrel Bisulfate 75 Mg Tablet) 75 mg PO DAILY [facility] Last Admin: 12/27/21 09:51 Dose: 75 mg Documented by: Cyanocobalamin (Cyanocobalamin (Vitamin B-12) 500 Mcg Tablet) 500 mcg PO DAILY [facility] Last Admin: 12/27/21 09:52 Dose: 500 mcg Documented by: Divalproex Sodium (Divalproex Sodium Sprinkles 125 Mg ) 125 mg PO TID [facility] Last Admin: 12/27/21 14:36 Dose: 125 mg Documented by: Escitalopram Oxalate (Escitalopram Oxalate 20 Mg Tablet) 20 mg PO DAILY [facility] Last Admin: 12/27/21 09:52 Dose: 20 mg Documented by: Famotidine (Famotidine 20 Mg Tablet) 20 mg PO DAILY [facility] Last Admin: 12/27/21 09:52 Dose: 20 mg Documented by: Folic Acid (Folic Acid 1 Mg Tablet) 1 mg PO DAILY [facility] Last Admin: 12/27/21 09:51 Dose: 1 mg Documented by: Hydroxyzine HCl (Hydroxyzine Hcl 25 Mg Tablet) 25 mg PO BEDTIME PRN PRN Reason: Anxiety Last Admin: 12/26/21 19:42 Dose: 25 mg Documented by: Magnesium Hydroxide (Milk Of Magnesia 30 Ml Oral.Susp) 30 ml PO DAILY PRN PRN Reason: Constipation Magnesium Oxide (Magnesium Oxide 400 Mg Tablet) 400 mg PO BIDPC [facility] Last Admin: 12/27/21 09:51 Dose: 400 mg Documented by: Multivitamins/Vitamin C (Multivitamin Tablet) 1 tab PO DAILY [facility] Last Admin: 12/27/21 09:52 Dose: 1 tab Documented by: Nystatin (Nystatin Ointment 15 Gm Tube) 1 appl TOPICAL BID [facility]; Protocol Last Admin: 12/27/21 12:48 Dose: Not Given Documented by: Olanzapine (Olanzapine 5 Mg Tablet) 5 mg PO Q4H PRN PRN Reason: agitation Last Admin: 12/21/21 13:01 Dose: 5 mg Documented by: Risperidone (Risperidone 1 Mg Tablet) 1 mg PO BID [facility] Last Admin: 12/27/21 09:51 Dose: 1 mg Documented by: Spironolactone (Spironolactone 25 Mg Tablet) 25 mg PO DAILY [facility]; Protocol Last Admin: 12/27/21 09:52 Dose: 25 mg Documented by: Trazodone HCl (Trazodone Hcl 50 Mg Tablet) 50 mg PO BEDTIME PRN PRN Reason: Insomnia Last Admin: 12/22/21 21:09 Dose: 50 mg Documented by: Vitamin D (Cholecalciferol (Vitamin D3) 10 Mcg Tablet) 10 mcg PO DAILY [facility] Last Admin: 12/27/21 09:52 Dose: 10 mcg Documented by: Allergies Allergies Allergy/AdvReac Type Severity Reaction Status Date / Time aspirin Allergy Unknown Unknown Verified 12/16/21 23:03 egg Allergy Unknown Unknown Verified 12/16/21 22:59 gelatin Allergy Unknown Unknown Verified 12/16/21 22:59 latex Allergy Unknown Unknown Verified 12/16/21 22:59 neomycin Allergy Unknown Unknown Verified 12/16/21 22:59 Sulfa (Sulfonamide Allergy Unknown Unknown Verified 12/16/21 22:59 Antibiotics) sulfamethizole Allergy Unknown Unknown Verified 12/16/21 23:05 warfarin Allergy Unknown Unknown Verified 12/16/21 23:01 tramadol Allergy Unknown Verified 12/16/21 23:01 Assessment & Plan Assessment & Plan (1) Major neurocognitive disorder: Status: Acute Code(s): F03.90 - Unspecified dementia without behavioral disturbance (2) CKD (chronic kidney disease): Status: Acute Code(s): N18.9 - Chronic kidney disease, unspecified Plan The patient is an 85-year-old male with a history of dementia that in the last 2 or 3 months his condition has worsened with increased agitation, paranoia delusions and disorganized behavior. As per the report of her daughter, he responded fairly well to Risperdal in the past at a very low dose. Plan 1. Continue same medications as per med reconciliation form. 2. Gather collateral information. 3. continue Risperdal up to 1 mg p.o. b.i.d. May consider mood stabilizer for impulsive behaviors. 12/20- added depakote 125mg po TID for impulsive behaviors, repeat CMP- increase Cr from previous days, mild hyperkalemia. consult with who advised to stop lisinopril, no need for fluids at this time. 12/21 continue current medications. 12/25- changed to 15 minutes checks for safety as pt presents as less impulsive, ambulating safely with walker. check depakote level. 12/27 no changes to current treatment regimen I spent minutes with the patient and/or on the patient floor today, greater than?50% of which was spent counseling/coordinating care. Reason for contiued inpatient stay Substantial Risk for: med/psych decompensation
[2021-12-27] MEDS: traZODone HCL 50 MG TABLET PO (20:12)
[2021-12-27] MEDS: Atorvastatin Calcium 20 MG TABLET PO (20:12)
[2021-12-27] MEDS: hydrOXYzine HCL 25 MG TABLET PO (20:12)
[2021-12-27 21:24] VITALS: BP 126/60; PULSE 60; RESP 17; TEMP 36.1; O2SAT 97
[2021-12-28 10:10] VITALS: BP 103/58; PULSE 70; RESP 16; TEMP 36.3; O2SAT 97
[2021-12-28] MEDS: Cholecalciferol (Vitamin D3) 10 MCG TABLET PO (10:15)
[2021-12-28] MEDS: Spironolactone 25 MG TABLET PO (10:15)
[2021-12-28] MEDS: Famotidine 20 MG TABLET PO (10:15)
[2021-12-28] MEDS: Escitalopram Oxalate 20 MG TABLET PO (10:15)
[2021-12-28] MEDS: Folic Acid 1 MG TABLET PO (10:15)
[2021-12-28] MEDS: Cyanocobalamin (Vitamin B-12) 500 MCG TABLET PO (10:15)
[2021-12-28] MEDS: Divalproex Sodium Sprinkles 125 MG CAP.DR.SPR PO ×3 (10:15→20:10)
[2021-12-28] MEDS: Clopidogrel Bisulfate 75 MG TABLET PO (10:15)
[2021-12-28] MEDS: Magnesium Oxide 400 MG TABLET PO ×2 (10:15→17:41)
[2021-12-28] MEDS: atenoloL 25 MG TABLET PO (10:15)
[2021-12-28] MEDS: Multivitamin TABLET 1 TAB PO (10:15)
[2021-12-28] MEDS: risperiDONE 1 MG TABLET PO ×2 (10:16→20:10)
[2021-12-28] MEDS: allopurinoL 100 MG TABLET PO (10:16)
[2021-12-28] MEDS: Atorvastatin Calcium 20 MG TABLET PO (20:10)
[2021-12-28] MEDS: Nystatin Ointment 15 GM TUBE 1 APPL TOPICAL (20:16)
[2021-12-28 21:00] VITALS: BP 123/59; PULSE 60; RESP 18; TEMP 35.9; O2SAT 96
--- NOTE | 2021-12-28 23:20 | P.PNPSI_ITS ---
Subjective Subjective Date of Service: 12/28/21 Reason For Visit: Unspecified dementia w/o behavioral disturbance Interim History: [employer] Supervisor pleasant on approach but is mostly focused on working with [facility]. No changes in presentation from yesterday. Denies complaints or requests Mental Status Exam Mental Status Exam Narrative: Patient Appearance:?Well Grooomed Patient Orientation:?Person Level of Consciousness:?Awake Patient Behavior:?Cooperative Mood Description:?Constricted Affect Description:?Constricted Patient Cognition Impaired:?Yes Ability to Follow Directions:?Good Speech Pattern:?Appropriate Diagnostics Vital Signs (24Hr): Vital Signs - 24 hr 12/28/21 10:10 12/28/21 21:00 Temperature 97.3 F 96.6 F L Pulse Rate 70 60 Respiratory Rate 16 18 Blood Pressure 103/58 L 123/59 L Pulse Oximetry 97 96 BMI result Body Mass Index 30.4 Labs Results: 12/21/21 08:14 12/21/21 08:14 Medications Medications Current Medications Acetaminophen (Acetaminophen 325 Mg Tablet) 650 mg PO Q8H PRN PRN Reason: Pain, Mild (Pain Scale 1-3) Al Hydroxide/Mg Hydroxide (Magnesium Hydrox/Alum Hydrox 30 Ml Oral.Susp) 30 ml PO Q6H PRN PRN Reason: Heartburn/Nausea Allopurinol (Allopurinol 100 Mg Tablet) 100 mg PO DAILY [facility] Last Admin: 12/28/21 10:16 Dose: 100 mg Documented by: Atenolol (Atenolol 25 Mg Tablet) 25 mg PO DAILY [facility]; Protocol Last Admin: 12/28/21 10:15 Dose: 25 mg Documented by: Atorvastatin Calcium (Atorvastatin Calcium 20 Mg Tablet) 20 mg PO BEDTIME [facility] Last Admin: 12/28/21 20:10 Dose: 20 mg Documented by: Clopidogrel Bisulfate (Clopidogrel Bisulfate 75 Mg Tablet) 75 mg PO DAILY [facility] Last Admin: 12/28/21 10:15 Dose: 75 mg Documented by: Cyanocobalamin (Cyanocobalamin (Vitamin B-12) 500 Mcg Tablet) 500 mcg PO DAILY [facility] Last Admin: 12/28/21 10:15 Dose: 500 mcg Documented by: Divalproex Sodium (Divalproex Sodium Sprinkles 125 Mg ) 125 mg PO TID [facility] Last Admin: 12/28/21 20:10 Dose: 125 mg Documented by: Escitalopram Oxalate (Escitalopram Oxalate 20 Mg Tablet) 20 mg PO DAILY [facility] Last Admin: 12/28/21 10:15 Dose: 20 mg Documented by: Famotidine (Famotidine 20 Mg Tablet) 20 mg PO DAILY [facility] Last Admin: 12/28/21 10:15 Dose: 20 mg Documented by: Folic Acid (Folic Acid 1 Mg Tablet) 1 mg PO DAILY [facility] Last Admin: 12/28/21 10:15 Dose: 1 mg Documented by: Hydroxyzine HCl (Hydroxyzine Hcl 25 Mg Tablet) 25 mg PO BEDTIME PRN PRN Reason: Anxiety Last Admin: 12/27/21 20:12 Dose: 25 mg Documented by: Magnesium Hydroxide (Milk Of Magnesia 30 Ml Oral.Susp) 30 ml PO DAILY PRN PRN Reason: Constipation Magnesium Oxide (Magnesium Oxide 400 Mg Tablet) 400 mg PO BIDPC [facility] Last Admin: 12/28/21 17:41 Dose: 400 mg Documented by: Multivitamins/Vitamin C (Multivitamin Tablet) 1 tab PO DAILY [facility] Last Admin: 12/28/21 10:15 Dose: 1 tab Documented by: Nystatin (Nystatin Ointment 15 Gm Tube) 1 appl TOPICAL BID [facility]; Protocol Last Admin: 12/28/21 20:16 Dose: 1 appl Documented by: Olanzapine (Olanzapine 5 Mg Tablet) 5 mg PO Q4H PRN PRN Reason: agitation Last Admin: 12/21/21 13:01 Dose: 5 mg Documented by: Risperidone (Risperidone 1 Mg Tablet) 1 mg PO BID [facility] Last Admin: 12/28/21 20:10 Dose: 1 mg Documented by: Spironolactone (Spironolactone 25 Mg Tablet) 25 mg PO DAILY [facility]; Protocol Last Admin: 12/28/21 10:15 Dose: 25 mg Documented by: Trazodone HCl (Trazodone Hcl 50 Mg Tablet) 50 mg PO BEDTIME PRN PRN Reason: Insomnia Last Admin: 12/27/21 20:12 Dose: 50 mg Documented by: Vitamin D (Cholecalciferol (Vitamin D3) 10 Mcg Tablet) 10 mcg PO DAILY [facility] Last Admin: 12/28/21 10:15 Dose: 10 mcg Documented by: Allergies Allergies Allergy/AdvReac Type Severity Reaction Status Date / Time aspirin Allergy Unknown Unknown Verified 12/16/21 23:03 egg Allergy Unknown Unknown Verified 12/16/21 22:59 gelatin Allergy Unknown Unknown Verified 12/16/21 22:59 latex Allergy Unknown Unknown Verified 12/16/21 22:59 neomycin Allergy Unknown Unknown Verified 12/16/21 22:59 Sulfa (Sulfonamide Allergy Unknown Unknown Verified 12/16/21 22:59 Antibiotics) sulfamethizole Allergy Unknown Unknown Verified 12/16/21 23:05 warfarin Allergy Unknown Unknown Verified 12/16/21 23:01 tramadol Allergy Unknown Verified 12/16/21 23:01 Assessment & Plan Assessment & Plan (1) Major neurocognitive disorder: Status: Acute Code(s): F03.90 - Unspecified dementia without behavioral disturbance (2) CKD (chronic kidney disease): Status: Acute Code(s): N18.9 - Chronic kidney disease, unspecified Plan The patient is an 85-year-old male with a history of dementia that in the last 2 or 3 months his condition has worsened with increased agitation, paranoia delusions and disorganized behavior. As per the report of her daughter, he responded fairly well to Risperdal in the past at a very low dose. Plan 1. Continue same medications as per med reconciliation form. 2. Gather collateral information. 3. continue Risperdal up to 1 mg p.o. b.i.d. May consider mood stabilizer for impulsive behaviors. 12/20- added depakote 125mg po TID for impulsive behaviors, repeat CMP- increase Cr from previous days, mild hyperkalemia. consult with who advised to stop lisinopril, no need for fluids at this time. 12/21 continue current medications. 12/25- changed to 15 minutes checks for safety as pt presents as less impulsive, ambulating safely with walker. check depakote level. 12/27 no changes to current treatment regimen 12/28 no changes to current treatment regimen I spent minutes with the patient and/or on the patient floor today, gre ater than?50% of which was spent counseling/coordinating care. Reason for contiued inpatient stay Substantial Risk for: med/psych decompensation
[2021-12-29 08:00] VITALS: BP 122/62; PULSE 58; RESP 16; TEMP 36.2; O2SAT 95
[2021-12-29] MEDS: Famotidine 20 MG TABLET PO (08:51)
[2021-12-29] MEDS: allopurinoL 100 MG TABLET PO (08:52)
[2021-12-29] MEDS: Multivitamin TABLET 1 TAB PO (08:52)
[2021-12-29] MEDS: Escitalopram Oxalate 20 MG TABLET PO (08:52)
[2021-12-29] MEDS: Magnesium Oxide 400 MG TABLET PO ×2 (08:52→17:24)
[2021-12-29] MEDS: Cholecalciferol (Vitamin D3) 10 MCG TABLET PO (08:52)
[2021-12-29] MEDS: Divalproex Sodium Sprinkles 125 MG CAP.DR.SPR PO ×2 (08:52→20:10)
[2021-12-29] MEDS: Spironolactone 25 MG TABLET PO (08:52)
[2021-12-29] MEDS: Folic Acid 1 MG TABLET PO (08:52)
[2021-12-29] MEDS: Clopidogrel Bisulfate 75 MG TABLET PO (08:52)
[2021-12-29] MEDS: risperiDONE 1 MG TABLET PO ×2 (08:52→20:10)
[2021-12-29] MEDS: Cyanocobalamin (Vitamin B-12) 500 MCG TABLET PO (08:53)
--- NOTE | 2021-12-29 12:35 | HO.PSYCHPN ---
Subjective Subjective Date of Service: 12/29/21 Reason For Visit: Unspecified dementia w/o behavioral disturbance Subjective Notes: Conditional Voluntary (CV by healthcare proxy) Interim History: The nursing staff reported that the patient has not shown aggressive behavior, he slept well but he looks confused at times. He has also nonsensical at times. The social security specialist called her daughter for placement under working on that. On interview, the patient denies new symptoms he is pleasantly confused. Mental Status Exam Mental Status Exam Patient Appearance: Appropriate Patient Orientation: Person Level of Consciousness: Awake Patient Behavior: Guarded and Passive Mood Description: Depressed Affect Description: Constricted Patient Cognition Impaired: Yes Ability to Follow Directions: Fair Speech Pattern: Clear Hallucinations: None Delusions: Not Present Thought Process: Distracted and Evasive Thought Content: positive for Circumstantial Diagnostics Vital Signs (24Hr): Vital Signs - 24 hr 12/28/21 21:00 12/29/21 08:00 Temperature 96.6 F L 97.1 F Pulse Rate 60 58 Respiratory Rate 18 16 Blood Pressure 123/59 L 122/62 Pulse Oximetry 96 95 BMI result Body Mass Index 30.4 Labs Results: 12/21/21 08:14 12/21/21 08:14 Medications Medications Current Medications Acetaminophen (Acetaminophen 325 Mg Tablet) 650 mg PO Q8H PRN PRN Reason: Pain, Mild (Pain Scale 1-3) Al Hydroxide/Mg Hydroxide (Magnesium Hydrox/Alum Hydrox 30 Ml Oral.Susp) 30 ml PO Q6H PRN PRN Reason: Heartburn/Nausea Allopurinol (Allopurinol 100 Mg Tablet) 100 mg PO DAILY [facility] Last Admin: 12/29/21 08:52 Dose: 100 mg Documented by: Atenolol (Atenolol 25 Mg Tablet) 25 mg PO DAILY [facility]; Protocol Last Admin: 12/29/21 09:03 Dose: Not Given Documented by: Atorvastatin Calcium (Atorvastatin Calcium 20 Mg Tablet) 20 mg PO BEDTIME [facility] Last Admin: 12/28/21 20:10 Dose: 20 mg Documented by: Clopidogrel Bisulfate (Clopidogrel Bisulfate 75 Mg Tablet) 75 mg PO DAILY [facility] Last Admin: 12/29/21 08:52 Dose: 75 mg Documented by: Cyanocobalamin (Cyanocobalamin (Vitamin B-12) 500 Mcg Tablet) 500 mcg PO DAILY [facility] Last Admin: 12/29/21 08:53 Dose: 500 mcg Documented by: Divalproex Sodium (Divalproex Sodium Sprinkles 125 Mg ) 125 mg PO TID [facility] Last Admin: 12/29/21 08:52 Dose: 125 mg Documented by: Escitalopram Oxalate (Escitalopram Oxalate 20 Mg Tablet) 20 mg PO DAILY [facility] Last Admin: 12/29/21 08:52 Dose: 20 mg Documented by: Famotidine (Famotidine 20 Mg Tablet) 20 mg PO DAILY [facility] Last Admin: 12/29/21 08:51 Dose: 20 mg Documented by: Folic Acid (Folic Acid 1 Mg Tablet) 1 mg PO DAILY [facility] Last Admin: 12/29/21 08:52 Dose: 1 mg Documented by: Hydroxyzine HCl (Hydroxyzine Hcl 25 Mg Tablet) 25 mg PO BEDTIME PRN PRN Reason: Anxiety Last Admin: 12/27/21 20:12 Dose: 25 mg Documented by: Magnesium Hydroxide (Milk Of Magnesia 30 Ml Oral.Susp) 30 ml PO DAILY PRN PRN Reason: Constipation Magnesium Oxide (Magnesium Oxide 400 Mg Tablet) 400 mg PO BIDPC [facility] Last Admin: 12/29/21 08:52 Dose: 400 mg Documented by: Multivitamins/Vitamin C (Multivitamin Tablet) 1 tab PO DAILY [facility] Last Admin: 12/29/21 08:52 Dose: 1 tab Documented by: Nystatin (Nystatin Ointment 15 Gm Tube) 1 appl TOPICAL BID [facility]; Protocol Last Admin: 12/29/21 09:03 Dose: Not Given Documented by: Olanzapine (Olanzapine 5 Mg Tablet) 5 mg PO Q4H PRN PRN Reason: agitation Last Admin: 12/21/21 13:01 Dose: 5 mg Documented by: Risperidone (Risperidone 1 Mg Tablet) 1 mg PO BID [facility] Last Admin: 12/29/21 08:52 Dose: 1 mg Documented by: Spironolactone (Spironolactone 25 Mg Tablet) 25 mg PO DAILY [facility]; Protocol Last Admin: 12/29/21 08:52 Dose: 25 mg Documented by: Trazodone HCl (Trazodone Hcl 50 Mg Tablet) 50 mg PO BEDTIME PRN PRN Reason: Insomnia Last Admin: 12/27/21 20:12 Dose: 50 mg Documented by: Vitamin D (Cholecalciferol (Vitamin D3) 10 Mcg Tablet) 10 mcg PO DAILY [facility] Last Admin: 12/29/21 08:52 Dose: 10 mcg Documented by: Allergies Allergies Allergy/AdvReac Type Severity Reaction Status Date / Time aspirin Allergy Unknown Unknown Verified 12/16/21 23:03 egg Allergy Unknown Unknown Verified 12/16/21 22:59 gelatin Allergy Unknown Unknown Verified 12/16/21 22:59 latex Allergy Unknown Unknown Verified 12/16/21 22:59 neomycin Allergy Unknown Unknown Verified 12/16/21 22:59 Sulfa (Sulfonamide Allergy Unknown Unknown Verified 12/16/21 22:59 Antibiotics) sulfamethizole Allergy Unknown Unknown Verified 12/16/21 23:05 warfarin Allergy Unknown Unknown Verified 12/16/21 23:01 tramadol Allergy Unknown Verified 12/16/21 23:01 Assessment & Plan Assessment & Plan (1) Major neurocognitive disorder: Status: Acute Code(s): F03.90 - Unspecified dementia without behavioral disturbance (2) CKD (chronic kidney disease): Status: Acute Code(s): N18.9 - Chronic kidney disease, unspecified Plan The patient is an 85-year-old male with a history of dementia that in the last 2 or 3 months his condition has worsened with increased agitation, paranoia delusions and disorganized behavior. As per the report of her daughter, he responded fairly well to Risperdal in the past at a very low dose. Plan 1. Continue same medications as per med reconciliation form. 2. Gather collateral information. 3. Continue Risperdal up to 1 mg p.o. b.i.d. 4. Continue Depakote. I spent ___20___ minutes with the patient and/or on the patient floor today, greater than?50% of which was spent counseling/coordinating care. Reason for contiued inpatient stay Substantial Risk for: inability to function, rapid decompensation and med/psych decompensation
[2021-12-29] MEDS: Atorvastatin Calcium 20 MG TABLET PO (20:10)
[2021-12-29] MEDS: Nystatin Ointment 15 GM TUBE 1 APPL TOPICAL (20:30)
[2021-12-29 20:49] VITALS: BP 112/53; PULSE 64; RESP 64; TEMP 36.6; O2SAT 97
[2021-12-29] MEDS: hydrOXYzine HCL 25 MG TABLET PO (21:58)
[2021-12-29] MEDS: traZODone HCL 50 MG TABLET PO (21:58)
[2021-12-30 06:00] VITALS: BP 118/60; PULSE 62; RESP 20; TEMP 36.2; O2SAT 95
[2021-12-30] MEDS: Magnesium Oxide 400 MG TABLET PO ×2 (08:59→17:34)
[2021-12-30] MEDS: Clopidogrel Bisulfate 75 MG TABLET PO (08:59)
[2021-12-30] MEDS: Cholecalciferol (Vitamin D3) 10 MCG TABLET PO (08:59)
[2021-12-30] MEDS: allopurinoL 100 MG TABLET PO (08:59)
[2021-12-30] MEDS: risperiDONE 1 MG TABLET PO ×2 (08:59→20:08)
[2021-12-30] MEDS: atenoloL 25 MG TABLET PO (08:59)
[2021-12-30] MEDS: Escitalopram Oxalate 20 MG TABLET PO (08:59)
[2021-12-30] MEDS: Cyanocobalamin (Vitamin B-12) 500 MCG TABLET PO (08:59)
[2021-12-30] MEDS: Multivitamin TABLET 1 TAB PO (08:59)
[2021-12-30] MEDS: Divalproex Sodium Sprinkles 125 MG CAP.DR.SPR PO ×3 (09:00→20:08)
[2021-12-30] MEDS: Spironolactone 25 MG TABLET PO (09:00)
[2021-12-30] MEDS: Folic Acid 1 MG TABLET PO (09:00)
[2021-12-30] MEDS: Famotidine 20 MG TABLET PO (09:00)
--- NOTE | 2021-12-30 11:41 | P.PNPSI_ITS ---
Subjective Subjective Date of Service: 12/30/21 Reason For Visit: Unspecified dementia w/o behavioral disturbance Subjective Notes: Conditional Voluntary Interim History: The nursing staff reported the patient has been visible in the unit, he is on 15 minute checks. Yesterday, he shows some residual irritability with [employer] in the evening for toileting. He received p.r.n. trazodone at even at . At this moment, the staff reported the patient has been eating fairly well. On interview the patient denies new symptoms he looks pleasantly confused but he is easily redirectable. He stated that he misses his . Mental Status Exam Mental Status Exam Patient Appearance: Well Grooomed Patient Orientation: Person Level of Consciousness: Awake Patient Behavior: Passive and Suspicious Mood Description: Constricted Affect Description: Calm Patient Cognition Impaired: Yes Ability to Follow Directions: Fair Speech Pattern: Clear Hallucinations: None Delusions: Not Present Thought Process: Distracted Thought Content: positive for Circumstantial Judgement: Fair Diagnostics Vital Signs (24Hr): Vital Signs - 24 hr 12/29/21 20:49 12/30/21 06:00 Temperature 97.9 F 97.2 F Pulse Rate 64 62 Respiratory Rate 64 H 20 Blood Pressure 112/53 L 118/60 Pulse Oximetry 97 95 BMI result Body Mass Index 30.4 Labs Results: 12/21/21 08:14 12/21/21 08:14 Medications Medications Current Medications Acetaminophen (Acetaminophen 325 Mg Tablet) 650 mg PO Q8H PRN PRN Reason: Pain, Mild (Pain Scale 1-3) Al Hydroxide/Mg Hydroxide (Magnesium Hydrox/Alum Hydrox 30 Ml Oral.Susp) 30 ml PO Q6H PRN PRN Reason: Heartburn/Nausea Allopurinol (Allopurinol 100 Mg Tablet) 100 mg PO DAILY [facility] Last Admin: 12/30/21 08:59 Dose: 100 mg Documented by: Atenolol (Atenolol 25 Mg Tablet) 25 mg PO DAILY [facility]; Protocol Last Admin: 12/30/21 08:59 Dose: 25 mg Documented by: Atorvastatin Calcium (Atorvastatin Calcium 20 Mg Tablet) 20 mg PO BEDTIME [facility] Last Admin: 12/29/21 20:10 Dose: 20 mg Documented by: Clopidogrel Bisulfate (Clopidogrel Bisulfate 75 Mg Tablet) 75 mg PO DAILY [facility] Last Admin: 12/30/21 08:59 Dose: 75 mg Documented by: Cyanocobalamin (Cyanocobalamin (Vitamin B-12) 500 Mcg Tablet) 500 mcg PO DAILY [facility] Last Admin: 12/30/21 08:59 Dose: 500 mcg Documented by: Divalproex Sodium (Divalproex Sodium Sprinkles 125 Mg ) 125 mg PO TID [facility] Last Admin: 12/30/21 09:00 Dose: 125 mg Documented by: Escitalopram Oxalate (Escitalopram Oxalate 20 Mg Tablet) 20 mg PO DAILY [facility] Last Admin: 12/30/21 08:59 Dose: 20 mg Documented by: Famotidine (Famotidine 20 Mg Tablet) 20 mg PO DAILY [facility] Last Admin: 12/30/21 09:00 Dose: 20 mg Documented by: Folic Acid (Folic Acid 1 Mg Tablet) 1 mg PO DAILY [facility] Last Admin: 12/30/21 09:00 Dose: 1 mg Documented by: Hydroxyzine HCl (Hydroxyzine Hcl 25 Mg Tablet) 25 mg PO BEDTIME PRN PRN Reason: Anxiety Last Admin: 12/29/21 21:58 Dose: 25 mg Documented by: Magnesium Hydroxide (Milk Of Magnesia 30 Ml Oral.Susp) 30 ml PO DAILY PRN PRN Reason: Constipation Magnesium Oxide (Magnesium Oxide 400 Mg Tablet) 400 mg PO BIDPC [facility] Last Admin: 12/30/21 08:59 Dose: 400 mg Documented by: Multivitamins/Vitamin C (Multivitamin Tablet) 1 tab PO DAILY [facility] Last Admin: 12/30/21 08:59 Dose: 1 tab Documented by: Nystatin (Nystatin Ointment 15 Gm Tube) 1 appl TOPICAL BID [facility]; Protocol Last Admin: 12/30/21 11:12 Dose: Not Given Documented by: Olanzapine (Olanzapine 5 Mg Tablet) 5 mg PO Q4H PRN PRN Reason: agitation Last Admin: 12/21/21 13:01 Dose: 5 mg Documented by: Risperidone (Risperidone 1 Mg Tablet) 1 mg PO BID [facility] Last Admin: 12/30/21 08:59 Dose: 1 mg Documented by: Spironolactone (Spironolactone 25 Mg Tablet) 25 mg PO DAILY [facility]; Protocol Last Admin: 12/30/21 09:00 Dose: 25 mg Documented by: Trazodone HCl (Trazodone Hcl 50 Mg Tablet) 50 mg PO BEDTIME PRN PRN Reason: Insomnia Last Admin: 12/29/21 21:58 Dose: 50 mg Documented by: Vitamin D (Cholecalciferol (Vitamin D3) 10 Mcg Tablet) 10 mcg PO DAILY [facility] Last Admin: 12/30/21 08:59 Dose: 10 mcg Documented by: Allergies Allergies Allergy/AdvReac Type Severity Reaction Status Date / Time aspirin Allergy Unknown Unknown Verified 12/16/21 23:03 egg Allergy Unknown Unknown Verified 12/16/21 22:59 gelatin Allergy Unknown Unknown Verified 12/16/21 22:59 latex Allergy Unknown Unknown Verified 12/16/21 22:59 neomycin Allergy Unknown Unknown Verified 12/16/21 22:59 Sulfa (Sulfonamide Allergy Unknown Unknown Verified 12/16/21 22:59 Antibiotics) sulfamethizole Allergy Unknown Unknown Verified 12/16/21 23:05 warfarin Allergy Unknown Unknown Verified 12/16/21 23:01 tramadol Allergy Unknown Verified 12/16/21 23:01 Assessment & Plan Assessment & Plan (1) Major neurocognitive disorder: Status: Acute Code(s): F03.90 - Unspecified dementia without behavioral disturbance (2) CKD (chronic kidney disease): Status: Acute Code(s): N18.9 - Chronic kidney disease, unspecified Plan The patient is an 85-year-old male with a history of dementia that in the last 2 or 3 months his condition has worsened with increased agitation, paranoia delusions and disorganized behavior. As per the report of her daughter, he responded fairly well to Risperdal in the past at a very low dose. Plan 1. Continue same medications as per med reconciliation form. 2. Gather collateral information. 3. Continue Risperdal up to 1 mg p.o. b.i.d. 4. Continue Depakote. 5. Add Trazodone 25 mg at 3 pm I spent ___20___ minutes with the patient and/or on the patient floor today, greater than?50% of which was spent counseling/coordinating care. Reason for contiued inpatient stay Substantial Risk for: inability to function, rapid decompensation and med/psych decompensation
[2021-12-30] MEDS: OLANZapine 5 MG TABLET PO (15:17)
[2021-12-30] MEDS: traZODone HCL 25 MG HALFTAB PO (16:20)
[2021-12-30] MEDS: Atorvastatin Calcium 20 MG TABLET PO (20:08)
[2021-12-30] MEDS: Nystatin Ointment 15 GM TUBE 1 APPL TOPICAL (20:09)
[2021-12-30 21:10] VITALS: BP 148/72; PULSE 67; RESP 18; TEMP 36.3; O2SAT 98
[2021-12-31 08:30] VITALS: BP 134/68; PULSE 66; RESP 16; TEMP 36.3; O2SAT 96
[2021-12-31] MEDS: allopurinoL 100 MG TABLET PO (08:46)
[2021-12-31] MEDS: Spironolactone 25 MG TABLET PO (08:46)
[2021-12-31] MEDS: Divalproex Sodium Sprinkles 125 MG CAP.DR.SPR PO ×3 (08:46→20:54)
[2021-12-31] MEDS: Escitalopram Oxalate 20 MG TABLET PO (08:46)
[2021-12-31] MEDS: Multivitamin TABLET 1 TAB PO (08:46)
[2021-12-31] MEDS: Folic Acid 1 MG TABLET PO (08:46)
[2021-12-31] MEDS: Clopidogrel Bisulfate 75 MG TABLET PO (08:46)
[2021-12-31] MEDS: risperiDONE 1 MG TABLET PO ×2 (08:46→20:55)
[2021-12-31] MEDS: Cholecalciferol (Vitamin D3) 10 MCG TABLET PO (08:46)
[2021-12-31] MEDS: Magnesium Oxide 400 MG TABLET PO ×2 (08:46→16:56)
[2021-12-31] MEDS: atenoloL 25 MG TABLET PO (08:46)
[2021-12-31] MEDS: Cyanocobalamin (Vitamin B-12) 500 MCG TABLET PO (08:46)
[2021-12-31] MEDS: Famotidine 20 MG TABLET PO (08:46)
--- NOTE | 2021-12-31 12:33 | HO.PSYCHPN ---
Subjective Subjective Date of Service: 12/31/21 Reason For Visit: Unspecified dementia w/o behavioral disturbance Subjective Notes: Conditional Voluntary Interim History: The nursing staff reported that he slept well and had a good appeite. He had a phone call with his yesterday and he was upset. The social service worker reported that the family is looking for a SNF. On interview, he was slightly sedated. Mental Status Exam Mental Status Exam Patient Appearance: Well Grooomed Patient Orientation: Person Level of Consciousness: Awake Patient Behavior: Cooperative Mood Description: Depressed Affect Description: Constricted Patient Cognition Impaired: Yes Ability to Follow Directions: Good Speech Pattern: Clear Hallucinations: None Delusions: Not Present Thought Process: Distracted and Evasive Thought Content: positive for [place] and positive for Poverty of Content Judgement: Fair Diagnostics Vital Signs (24Hr): Vital Signs - 24 hr 12/30/21 21:10 12/31/21 08:30 Temperature 97.4 F 97.4 F Pulse Rate 67 66 Respiratory Rate 18 16 Blood Pressure 148/72 H 134/68 Pulse Oximetry 98 96 BMI result Body Mass Index 30.4 Labs Results: 12/21/21 08:14 12/21/21 08:14 Medications Medications Current Medications Acetaminophen (Acetaminophen 325 Mg Tablet) 650 mg PO Q8H PRN PRN Reason: Pain, Mild (Pain Scale 1-3) Al Hydroxide/Mg Hydroxide (Magnesium Hydrox/Alum Hydrox 30 Ml Oral.Susp) 30 ml PO Q6H PRN PRN Reason: Heartburn/Nausea Allopurinol (Allopurinol 100 Mg Tablet) 100 mg PO DAILY [facility] Last Admin: 12/31/21 08:46 Dose: 100 mg Documented by: Atenolol (Atenolol 25 Mg Tablet) 25 mg PO DAILY [facility]; Protocol Last Admin: 12/31/21 08:46 Dose: 25 mg Documented by: Atorvastatin Calcium (Atorvastatin Calcium 20 Mg Tablet) 20 mg PO BEDTIME [facility] Last Admin: 12/30/21 20:08 Dose: 20 mg Documented by: Clopidogrel Bisulfate (Clopidogrel Bisulfate 75 Mg Tablet) 75 mg PO DAILY [facility] Last Admin: 12/31/21 08:46 Dose: 75 mg Documented by: Cyanocobalamin (Cyanocobalamin (Vitamin B-12) 500 Mcg Tablet) 500 mcg PO DAILY [facility] Last Admin: 12/31/21 08:46 Dose: 500 mcg Documented by: Divalproex Sodium (Divalproex Sodium Sprinkles 125 Mg ) 125 mg PO TID [facility] Last Admin: 12/31/21 08:46 Dose: 125 mg Documented by: Escitalopram Oxalate (Escitalopram Oxalate 20 Mg Tablet) 20 mg PO DAILY [facility] Last Admin: 12/31/21 08:46 Dose: 20 mg Documented by: Famotidine (Famotidine 20 Mg Tablet) 20 mg PO DAILY [facility] Last Admin: 12/31/21 08:46 Dose: 20 mg Documented by: Folic Acid (Folic Acid 1 Mg Tablet) 1 mg PO DAILY [facility] Last Admin: 12/31/21 08:46 Dose: 1 mg Documented by: Hydroxyzine HCl (Hydroxyzine Hcl 25 Mg Tablet) 25 mg PO BEDTIME PRN PRN Reason: Anxiety Last Admin: 12/29/21 21:58 Dose: 25 mg Documented by: Magnesium Hydroxide (Milk Of Magnesia 30 Ml Oral.Susp) 30 ml PO DAILY PRN PRN Reason: Constipation Magnesium Oxide (Magnesium Oxide 400 Mg Tablet) 400 mg PO BIDPC [facility] Last Admin: 12/31/21 08:46 Dose: 400 mg Documented by: Multivitamins/Vitamin C (Multivitamin Tablet) 1 tab PO DAILY [facility] Last Admin: 12/31/21 08:46 Dose: 1 tab Documented by: Nystatin/Triamcinolone Acetonide (Nystatin/Triamcinolone Cream 15 Gm Tube) 1 appl TOPICAL BID [facility]; Protocol Olanzapine (Olanzapine 5 Mg Tablet) 5 mg PO Q4H PRN PRN Reason: agitation Last Admin: 12/30/21 15:17 Dose: 5 mg Documented by: Risperidone (Risperidone 1 Mg Tablet) 1 mg PO BID [facility] Last Admin: 12/31/21 08:46 Dose: 1 mg Documented by: Spironolactone (Spironolactone 25 Mg Tablet) 25 mg PO DAILY [facility]; Protocol Last Admin: 12/31/21 08:46 Dose: 25 mg Documented by: Trazodone HCl (Trazodone Hcl 50 Mg Tablet) 50 mg PO BEDTIME PRN PRN Reason: Insomnia Last Admin: 12/29/21 21:58 Dose: 50 mg Documented by: Trazodone HCl (Trazodone Hcl 25 Mg Halftab) 25 mg PO DAILY@1700 [facility] Last Admin: 12/30/21 16:20 Dose: 25 mg Documented by: Vitamin D (Cholecalciferol (Vitamin D3) 10 Mcg Tablet) 10 mcg PO DAILY [facility] Last Admin: 12/31/21 08:46 Dose: 10 mcg Documented by: Allergies Allergies Allergy/AdvReac Type Severity Reaction Status Date / Time aspirin Allergy Unknown Unknown Verified 12/16/21 23:03 egg Allergy Unknown Unknown Verified 12/16/21 22:59 gelatin Allergy Unknown Unknown Verified 12/16/21 22:59 latex Allergy Unknown Unknown Verified 12/16/21 22:59 neomycin Allergy Unknown Unknown Verified 12/16/21 22:59 Sulfa (Sulfonamide Allergy Unknown Unknown Verified 12/16/21 22:59 Antibiotics) sulfamethizole Allergy Unknown Unknown Verified 12/16/21 23:05 warfarin Allergy Unknown Unknown Verified 12/16/21 23:01 tramadol Allergy Unknown Verified 12/16/21 23:01 Assessment & Plan Assessment & Plan (1) Major neurocognitive disorder: Status: Acute Code(s): F03.90 - Unspecified dementia without behavioral disturbance (2) CKD (chronic kidney disease): Status: Acute Code(s): N18.9 - Chronic kidney disease, unspecified Plan The patient is an 85-year-old male with a history of dementia that in the last 2 or 3 months his condition has worsened with increased agitation, paranoia delusions and disorganized behavior. As per the report of her daughter, he responded fairly well to Risperdal in the past at a very low dose. Plan 1. Continue same medications as per med reconciliation form with the increase of Risperdal and Trazodone addition. 2. Start working on discharge planning. I spent ___20___ minutes with the patient and/or on the patient floor today, greater than?50% of which was spent counseling/coordinating care. Reason for contiued inpatient stay Substantial Risk for: inability to function, rapid decompensation and med/psych decompensation
[2021-12-31] MEDS: traZODone HCL 25 MG HALFTAB PO (16:56)
[2021-12-31 18:00] VITALS: BP 122/61; PULSE 62; RESP 18; TEMP 36.4; O2SAT 96
[2021-12-31] MEDS: Atorvastatin Calcium 20 MG TABLET PO (20:54)
[2022-01-01 07:20] VITALS: BP 128/59; PULSE 66; RESP 14; TEMP 36.6; O2SAT 96
[2022-01-01] MEDS: Cholecalciferol (Vitamin D3) 10 MCG TABLET PO (09:14)
[2022-01-01] MEDS: Cyanocobalamin (Vitamin B-12) 500 MCG TABLET PO (09:14)
[2022-01-01] MEDS: Spironolactone 25 MG TABLET PO (09:14)
[2022-01-01] MEDS: Magnesium Oxide 400 MG TABLET PO (09:14)
[2022-01-01] MEDS: Clopidogrel Bisulfate 75 MG TABLET PO (09:14)
[2022-01-01] MEDS: Multivitamin TABLET 1 TAB PO (09:14)
[2022-01-01] MEDS: Divalproex Sodium Sprinkles 125 MG CAP.DR.SPR PO (09:14)
[2022-01-01] MEDS: allopurinoL 100 MG TABLET PO (09:14)
[2022-01-01] MEDS: Folic Acid 1 MG TABLET PO (09:14)
[2022-01-01] MEDS: Famotidine 20 MG TABLET PO (09:14)
[2022-01-01] MEDS: risperiDONE 1 MG TABLET PO (09:15)
[2022-01-01] MEDS: Escitalopram Oxalate 20 MG TABLET PO (09:15)
[2022-01-01] MEDS: atenoloL 25 MG TABLET PO (09:15)
--- NOTE | 2022-01-01 11:23 | PM.PSYDC ---
DS: Providers Provider Date of Service: 01/01/22 Date of admission: 12/16/21 21:27 Date of discharge: 01/01/22 Primary care physician: Unknown Physician Consults: 12/16/21 23:05 Consult to Hospitalist Routine Consulting Provider: Hospitalist Reason For Exam: transfer from another facility DS: Diagnosis Discharge Diagnosis (1) Major neurocognitive disorder: Status: Acute (2) CKD (chronic kidney disease): Status: Acute DS: Medications Discharge Medications Home Medications: Home Medications Medication Instructions Recorded Confirmed Cyanacobalamin 500 mcg PO DAILY 12/17/21 12/17/21 Daily-Carey (with folic acid) 400 mcg PO DAILY 12/17/21 12/17/21 allopurinol 100 mg PO DAILY 12/17/21 12/17/21 atenolol 25 mg PO DAILY 12/17/21 12/17/21 cholecalciferol (vitamin D3) 10 mcg PO DAILY 12/17/21 12/17/21 citalopram 40 mg PO DAILY 12/17/21 12/17/21 clopidogrel 75 mg PO DAILY 12/17/21 12/17/21 folic acid 1 mg tablet 1 mg PO DAILY 12/17/21 12/17/21 gabapentin 100 mg PO DAILY PRN 12/17/21 12/17/21 lisinopril 5 mg PO DAILY 12/17/21 12/17/21 [id number] oil-L.casei 1,200 mg PO DAILY 12/17/21 12/17/21 pantoprazole 40 mg PO DAILY 12/17/21 12/17/21 risperidone 0.5 mg PO DAILY 12/17/21 12/17/21 simvastatin 40 mg PO DAILY 12/17/21 12/17/21 spironolactone 25 mg PO DAILY 12/17/21 12/17/21 Mental Status Exam Mental Status Exam Patient Appearance: Appropriate Patient Orientation: Person Level of Consciousness: Awake Patient Behavior: Cooperative Mood Description: Withdrawn Affect Description: Constricted Patient Cognition Impaired: Yes Ability to Follow Directions: Good Speech Pattern: Clear Hallucinations: None Delusions: Not Present Thought Process: Linear Thought Content: positive for [place] and positive for Poverty of Content Judgement: Fair DS: Summary Hospital Course Hospital Course: The patient was admitted for exacerbation of disorganized behavior and violence in the context of worsening of cognitive impairment and medical problems. Please see the H and P from the admission note for further details. On admission, since the patient had responded historically very well to Risperdal, this medication was restarted titrated up to 1 mg p.o. b.i.d. with no evidence of EPS or any other side effects. We did a [place] test and the patient was very impaired and he was clear that his dementia had worsen it. The patient was able to participate in certain groups in the facility, he was pleasant and cooperative and easily redirectable but it was clear that he was demented. We had several family meetings and eventually the family found out a suitable place for him in longterm facility. 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 Dementia Referrals: [facility] [Other] - 01/01/22 12:00 pm (Transfer to longterm at [facility] at 12pm 01/01/22.) [facility] [Other] - 01/01/22 (Pace services to resume at time of discharge. ) Discharge Medications: New multivitamin [Daily-Carey] Tablet 1 tab PO DAILY 30 Days Qty: 30 0RF atorvastatin 20 mg Tablet 20 mg PO BEDTIME 30 Days Qty: 30 0RF trazodone 50 mg Tablet 50 mg PO BEDTIME PRN (Reason: Insomnia) 30 Days Qty: 30 0RF atenolol 25 mg Tablet 25 mg PO DAILY 30 Days Qty: 30 0RF Protocol: Hold for SBP/HR < HOLD for SBP < : 90 HOLD for HR < : 60 clopidogrel 75 mg Tablet 75 mg PO DAILY 30 Days Qty: 30 0RF allopurinol 100 mg Tablet 100 mg PO DAILY 30 Days Qty: 30 0RF spironolactone 25 mg Tablet 25 mg PO DAILY 30 Days Qty: 30 0RF Protocol: Hold for SBP< HOLD for SBP < : 90 magnesium oxide 400 mg (241.3 mg magnesium) Tablet 400 mg PO BIDPC 30 Days Qty: 60 0RF cyanocobalamin (vitamin B-12) 500 mcg Tablet 500 mcg PO DAILY 30 Days Qty: 30 0RF nystatin-triamcinolone 100,000-0.1 unit/g-% Cream 1 appl topical BID 30 Days Qty: 1 0RF Protocol: Apply to: Apply to: Groin/candy area divalproex 125 mg Capsule, Delayed Rel Sprinkle 125 mg PO TID 30 Days Qty: 90 0RF risperidone 1 mg Tablet 1 mg PO BID 30 Days Qty: 60 0RF cholecalciferol (vitamin D3) [Vitamin D3] 10 mcg (400 unit) Tablet 10 mcg PO DAILY 30 Days Qty: 30 0RF escitalopram oxalate 20 mg Tablet 20 mg PO DAILY 30 Days Qty: 30 0RF famotidine 20 mg Tablet 20 mg PO DAILY 30 Days Qty: 30 0RF Continued folic acid 1 mg Tablet 1 mg PO DAILY 30 Days Qty: 30 0RF Discontinued citalopram tablet 40 mg PO DAILY 0RF atenolol tablet 25 mg PO DAILY 0RF risperidone tablet 0.5 mg PO DAILY 0RF clopidogrel tablet 75 mg PO DAILY 0RF allopurinol tablet 100 mg PO DAILY 0RF spironolactone tablet 25 mg PO DAILY 0RF simvastatin tablet 40 mg PO DAILY 0RF Cyanacobalamin tablet 500 mcg PO DAILY 0RF pantoprazole capsule 40 mg PO DAILY 0RF lisinopril tablet 5 mg PO DAILY 0RF cholecalciferol (vitamin D3) tablet 10 mcg PO DAILY 0RF [id number]-ssu-fish oil-L.casei capsule 1,200 mg PO DAILY 0RF Daily-Carey (with folic acid) tablet 400 mcg PO DAILY 0RF gabapentin capsule 100 mg PO DAILY PRN (Reason: Pain) 0RF Discharge Orders: Discharge Order (Routine); Ordered 01/01/22 Ordered By: Dustin Issa Activity on Discharge: As tolerated Stand Alone Forms: Patient Portal Discharge page Care Plan Goals: Care plan goals achieved Health Concerns: Continue treatment as per primary care physician Plan of Treatment: Continue medication treatment by psychiatrist in the facility Assessment: Elderly male with a history of dementia admitted for exacerbation of agitation in the context of several changes in his life and medical problems. At this moment safe in the community
--- NOTE | 2022-01-01 12:30 | PC.NURSE ---
patient alert and oriented to self. AM vital signs appear stable. Patient is med compliant, ate breakfast and lunch prior to departure. He ambulates with walker, gait appears steady. Patient aware of discharge, education provided and discharge paperwork handed to EMT. Nurse to nurse completed w/receiving nurse. Patient left unit at 12:05 on stretcher.
== END 2022-01-01 12:05 | DRG 57 ==
PROVIDERS: Clinical Nurse Specialist Psychiatric/Mental Health, Adult; Social Worker; Admitting Provider Psychiatry & Neurology Psychiatry; Visit Provider Psychiatry & Neurology Psychiatry
DX: G30.9 Alzheimer's disease, unspecified (principal); F02.81 Dementia in other diseases classified elsewhere, unspecified severity, with behavioral disturbance; K21.9 Gastro-esophageal reflux disease without esophagitis; E11.22 Type 2 diabetes mellitus with diabetic chronic kidney disease; N18.30 Chronic kidney disease, stage 3 unspecified; I25.10 Atherosclerotic heart disease of native coronary artery without angina pectoris; M10.9 Gout, unspecified; E83.42 Hypomagnesemia; E78.5 Hyperlipidemia, unspecified; Z87.891 Personal history of nicotine dependence; Z91.040 Latex allergy status; Z88.2 Allergy status to sulfonamides; Z88.6 Allergy status to analgesic agent; Z79.02 Long term (current) use of antithrombotics/antiplatelets; Z79.899 Other long term (current) drug therapy
CPT/HCPCS: 36415; 80053; 80061; 80164; 82140; 82607; 82746; 82947; 83036; 83735; 84439; 84443; 85025; 93005; 97161; J2060